=== PATIENT | male | born 1945 | race Caucasian/White ===

== ENCOUNTER 2024-09-16 12:39 | Outpatient (CLI) | payer MEDICARE, SELFPAY ==
--- OUTSIDE RECORDS SUMMARY | 2024-08-01 05:11 | XMS_ITS | Encounter Summary ---
Author Organization [facility] Address [address] [place] [address] Care Team Providers Care In Mold Coater Name Role Phone Bethany Underwood MD Primary Care Provider [phone] Reason for Visit * Reason Comments Chest Pain Encounter Details Date Type Department Care Team ([facility] st Contact Info) Description 08/01/2024 5:11 AM EDT - 08/01/2024 3:54 PM EDT Emergency [facility] Emergency Department [address] [place] [address] Asha Fleming MD [address] [place] [address] Juliette Dobson MD [address] [place] [address] John Sancehz MD [address] [place] [address] Acute chest pain (Primary Dx); Paroxysmal [...] drink first t liliam in the morning (EYE-MECHANICAL TECHNICIAN) to steady your nerves or to get [...] atrial fibrillation who initially presented to the [facility] today with chief complaint of [...] y.o. male who initially presented to the [facility] today with chief complaint of chest pain. 1) Chest pain 2) Paroxysmal AF Patient presenting with chest pain that may be due to AF due to temporal correlation, although, it is unusual for chest pain to be a symptom of AF. Also consider non cardiac chest pain as a cause of his symptoms. Discussed druze of sinus rhythm with cardioversion vs conservative management with patient. Given his reassuring workup, he preferred conservative management. Will continue on current dose of sotalol and Eliquis. Suspect he will convert back to sinus rhythm in the coming days-weeks. Will arrange for sooner follow up with EP. Please page the on-call hotel manager with any further questions. I spent 45 minutes performing the following components of the encounter (on the day of the encounter): reviewing History, examining the patient, reviewing imaging and/or labs, Independently interpreting echocardiogram, ECG and/or other imaging results, counseling the patient and family/caregiver, communicating with other health career resource specialist, and entering clinical information in the EHR. Greater than 50% of the time spent on the encounter was face to face providing direct patient care, counseling for the patient/caregiver, and care coordination. Ibis Riddle ([facility] Jonathan Order Analyst [1] Past Medical History: Diagnosis Date Personal history of other diseases of the digestive system History of gastroesophageal reflux (GERD) Personal history of other infectious and parasitic diseases History of chicken pox [2] Past Surgical History: Procedure Laterality Date APPENDECTOMY N/A appendectomy from [facility] BRAIN SURGERY N/A brain surgery from [facility] COLONOSCOPY N/A colonoscopy from [facility] COLONOSCOPY KNEE ARTHROSCOPY W/ MENISCAL REPAIR N/A meniscus repair from [facility] TONSILLECTOMY N/A tonsillectomy from [facility] Cosigned by Milan Bell MD at 08/02/2024 [...] meaningful gap in anticoagulation. Milan Bell MD Conservator Artifactspharmacy innovation assistant [facility] Division of Cardiovascular Medicine Email: [email or web address] * ED Provider Notes - Delia Cabrera [...] he did returned from a trip to [facility] on Monday. Denies any legswelling or tenderness. [...] abnormality, arrhythmia, ACS, PE . Records from [facility] were personally reviewed by me, significant for cardiology telephone encounter from [facility] [place], notable for call about patient's chest pain [...] FLEMING ED Course as of 08/01/24 0636 [facility] August 01, 2024 0519 On [...] Procedure Laterality Date APPENDECTOMY N/A appendectomy from [employer] BRAIN SURGERY N/A brain surgery from [facility] COLONOSCOPY N/A colonoscopy from [facility] COLONOSCOPY KNEE ARTHROSCOPY W/ MENISCAL REPAIR N/A meniscus repair from [facility] TONSILLECTOMY N/A tonsillectomy from [facility] [3] Tobacco Use Smoking status: Former Current [...] recommendations regarding cardioversion. Recommendations are pending [KP] [id number] Had interactive discussion with Cardiology Service, at [...] symptoms or other concerns. Disposition Discharge AVS (Latvian Snapshot) - Printed 08/01/2024 KRIS Fraser Cosigned [...] Description 12/23/2024 9:40 AM EDT Office Visit [facility] [address] [place] [address] Franchesca Hsieh MD [address] [place] [address] documented as of this encounter [...] 9 <19 ng/L 08/01/2024 8:48 AM EDT [facility] Blood Venous blood specimen / Unknown Venipuncture / Unknown 08/01/2024 8:15 AM EDT 08/01/2024 8:22 AM EDT us Asha Fleming MD LAB BLOOD ORDERABLES Final Resu lt [facility] [address] [place] [address] * CT Angio Pulmonary Embolism (08/01/2024 7:47 [...] 1/2 Differentiation (08/01/2024 5:32 AM EDT) Pathologist [facility] HIV 1 & 2 Antibody/Antigen Screen Non Reactive Non Reactive 08/01/2024 6:25 AM EDT [facility] Comment:Screening for HIV 1 & 2 antibodies, and P24 antigen is NONREACTIVE. No confirmatory testing is required. Blood Venous blood specimen / Unknown Venipuncture / Unknown 08/01/2024 5:32 AM EDT 08/01/2024 5:45 AM EDT Result Keith Fleming MD LAB BLOOD ORDERABLES Final Resu lt Performing Organization Address [facility] Co de Phone Number [facility] [address] [place] [address] * Hepatitis C Antibody - ED (08/01/2024 5:32 AM EDT) Pathologist [facility] Hepatitis C Antibody Negative Negative 08/01/2024 6:24 AM EDT [facility] Blood Venous blood specimen / Unknown Venipuncture / Unknown 08/01/2024 5:32 AM EDT 08/01/2024 5:45 AM EDT Result Keith Fleming MD LAB BLOOD ORDERABLES Final Resu lt Performing Organization Address City/[facility]/ZIP Co de Phone Number [facility] [address] [place] [address] * Troponin now and 120 min (08/01/2024 5:32 AM EDT) Pathologist [facility] Troponin T, High Sensitivity, 0 Hour 12 <19 ng/L 08/01/2024 6:15 AM EDT [facility] Blood Venous blood specimen / Unknown Venipuncture / Unknown 08/01/2024 5:32 AM EDT 08/01/2024 5:45 AM EDT Result Keith Fleming MD LAB BLOOD ORDERABLES Final Resu lt [facility] [address] [place] [address] * (ABNORMAL) CMP (08/01/2024 5:32 AM EDT) Glucose, Plasma 107(H) 74 - 99 mg/dL 08/01/2024 6:15 AM EDT [facility] BUN, Plasma 15 8 - 23 mg/dL 08/01/2024 6:15 AM EDT [facility] Creatinine, Plasma 0.61(L) 0.70 - 1.20 mg/dL 08/01/2024 6:15 AM EDT [facility] BUN/Creatinine Ratio 25 08/01/2024 6:15 AM EDT [facility] Sodium, Plasma 140 136 - 145 mmol/L 08/01/2024 6:15 AM EDT [facility] Potassium, Plasma 4.4 3.6 - 4.9 mmol/L 08/01/2024 6:15 AM EDT [facility] Chloride, Plasma 106 97 - 107 mmol/L 08/01/2024 6:15 AM EDT [facility] CO2, Plasma 25 22 - 29 mmol/L 08/01/2024 6:15 AM EDT [facility] Anion Gap 9 6 - 16 mmol/L 08/01/2024 6:15 AM EDT [facility] Total Calcium, Plasma 9.1 8.9 - 10.2 mg/dL 08/01/2024 6:15 AM EDT [facility] Total Protein 6.5 6.3 - 7.9 g/dL 08/01/2024 6:15 AM EDT [facility] Albumin, Plasma 3.8 3.5 - 5.2 g/dL 08/01/2024 6:15 AM EDT [facility] AST, Plasma 26 10 - 50 U/L 08/01/2024 6:15 AM EDT [facility] Comment:Hemolyzed, result ma y be falsely increased. ALT, Plasma 26 10 - 50 U/L 08/01/2024 6:15 AM EDT [facility] Alkaline Phosphatase, Plasma 85 40 - 115 U/L 08/01/2024 6:15 AM EDT [facility] Total Bilirubin, Plasma 0.5 0.2 - 1.1 mg/dL 08/01/2024 6:15 AM EDT [facility] eGFRcr 97.1 mL/min/1.7 3m*2 08/01/2024 6:15 AM EDT [facility] Comment:Reported eGFRcr in m L/min/1.73m2 is based the CKD-EPI 2020 equation that does not use a race coefficient. Blood Venous blood specimen / Unknown Venipuncture / Unknown 08/01/2024 5:32 AM EDT 08/01/2024 5:45 AM EDT us Asha Fleming MD LAB BLOOD ORDERABLES Final Resu lt [facility] [address] [place] [address] * (ABNORMAL) CBC w/diff (08/01/2024 5:32 AM EDT) WBC Count 6.51 3.70 - 10.30 10*3/uL LAB HEMATOLOGY METHOD 08/01/2024 5:36 AM EDT [facility] RBC Count 4.95 4.60 - 6.10 10*6/uL LAB HEMATOLOGY METHOD 08/01/2024 5:36 AM EDT [facility] HGB 15.6 13.7 - 17.5 g/dL LAB HEMATOLOGY METHOD 08/01/2024 5:36 AM EDT [facility] HCT 46.4 40.0 - 51.0 % LAB HEMATOLOGY METHOD 08/01/2024 5:36 AM EDT [facility] Platelet Count 200 155 - 369 10*3/uL LAB HEMATOLOGY METHOD 08/01/2024 5:36 AM EDT [facility] MCV 94 79 - 98 fL LAB HEMATOLOGY METHOD 08/01/2024 5:36 AM EDT [facility] MCH 31.5 26.0 - 32.0 pg LAB HEMATOLOGY METHOD 08/01/2024 5:36 AM EDT [facility] MCHC 33.6 30.7 - 35.5 g/dL LAB HEMATOLOGY METHOD 08/01/2024 5:36 AM EDT [facility] RDW 14.3 11.5 - 14.5 % LAB HEMATOLOGY METHOD 08/01/2024 5:36 AM EDT [facility] MPV 11.1 8.8 - 12.5 fL LAB HEMATOLOGY METHOD 08/01/2024 5:36 AM EDT [facility] nRBC 0.0 <=0.0 per 100 WBCs LAB HEMATOLOGY METHOD 08/01/2024 5:36 AM EDT [facility] Differential Type Automated LAB HEMATOLOGY METHOD 08/01/2024 5:36 AM EDT [facility] Neutrophils % 71 % LAB HEMATOLOGY METHOD 08/01/2024 5:36 AM EDT [facility] Lymphocytes % 15 % LAB HEMATOLOGY METHOD 08/01/2024 5:36 AM EDT [facility] Monocytes % 11 % LAB HEMATOLOGY METHOD 08/01/2024 5:36 AM EDT [facility] Eosinophils % 2 % LAB HEMATOLOGY METHOD 08/01/2024 5:36 AM EDT [facility] Basophils % 1 % LAB HEMATOLOGY METHOD 08/01/2024 5:36 AM EDT [facility] Immature Granulocytes % 0 % LAB HEMATOLOGY METHOD 08/01/2024 5:36 AM EDT [facility] Neutrophils Absolute 4.68 1.60 - 6.10 10*3/uL LAB HEMATOLOGY METHOD 08/01/2024 5:36 AM EDT [facility] Lymphocytes Absolute 0.95(L) 1.20 - 3.90 10*3/uL LAB HEMATOLOGY METHOD 08/01/2024 5:36 AM EDT [facility] Monocytes Absolute 0.71 0.30 - 0.90 10*3/uL LAB HEMATOLOGY METHOD 08/01/2024 5:36 AM EDT [facility] Eosinophils Absolute 0.12 0.00 - 0.50 10*3/uL LAB HEMATOLOGY METHOD 08/01/2024 5:36 AM EDT [facility] Basophils Absolute 0.03 0.00 - 0.10 10*3/uL LAB HEMATOLOGY METHOD 08/01/2024 5:36 AM EDT [facility] Immature Granulocytes Absolute 0.02 0.00 - 0.06 10*3/uL LAB HEMATOLOGY METHOD 08/01/2024 5:36 AM EDT [facility] Blood Venous blood specimen / Unknown Venipuncture / Unknown 08/01/2024 5:32 AM EDT 08/01/2024 5:34 AM EDT Narrative [facility] - 08/01/2024 5:36 AM EDT Therapeutic decision making should be based on absolute values, rather than percentages. us Asha Fleming MD LAB BLOOD ORDERABLES Final Resu lt [facility] [address] [place] [address] * EKG now - STAT (adult) (08/01/2024 5:14 AM EDT) EKG DIAGNOSIS CLASS Abnormal MUSE ECG Ventricular Rate 82 BPM MUSE ECG QRSD Interval 134 ms MUSE ECG QT Interval 414 ms MUSE ECG QTC Interval 483 ms MUSE ECG R [place] 124 degrees MUSE ECG T Wave [place] 10 degrees MUSE ECG Diagnosis Atrial fibrillation MUSE ECG Diagnosis Right bundle branch block MUSE ECG Diagnosis Abnormal ECG MUSE ECG Diagnosis MUSE ECG Diagnosis Confirmed by Yves Carroll ([id number]) on 08/01/2024 11:11:34 AM MUSE ECG 08/01/2024 5:14 AM EDT 08/01/2024 11:11 AM EDT us Asha Fleming MD ECG ORDERABLES Final Result Performing Organization Address City/[facility] Co de Phone Number MUSE ECG documented [...] documented as of this encounter Care Teams In Mold Coater Relationship Specialty Start Date End Date Bethany Underwood MD [address] [place] [address] [address] [place] [address] PCP - General 08/07/20 documented as of this encounter
--- OUTSIDE RECORDS SUMMARY | 2024-08-08 13:06 | XMS_ITS | Encounter Summary ---
Author Organization [facility] Address [address] [place] [address] Care Team Providers Care Hcc Coders Name Role Phone Bethany Underwood MD Primary Care Provider [phone] Reason for Referral * Cardiac Stress Testing (Routine) - Closed Specialty Diagnoses / Procedures Referred By Contac t Referred To Contact Cardiology Diagnoses Atrial fibrillation, unspecified type (CMS/HCC) Chest pain, unspecified type Anginal equivalent (CMS/HCC) Procedures Adult Patch Monitor - 7 Day Adult Patch Monitor - 14 Day Glory Camarena PA [address] [place] [address] Phone: tel: fax: Referral ID Status Reason Start Date Expiration Date Visits Re quested Visits Authorized [id number] Closed 08/06/2024 02/05/2026 1 1 Reason for Visit * Cardiac Stress Testing (Routine) - Closed Specialty Diagnoses / Procedures Referred By Contac t Referred To Contact Cardiology Diagnoses Atrial fibrillation, unspecified type (CMS/HCC) Chest pain, unspecified type Anginal equivalent (CMS/HCC) Procedures Adult Patch Monitor - 7 Day Adult Patch Monitor - 14 Day Glory Camarena PA [address] [place] [address] Phone: tel: fax: Referral ID Status Reason Start Date Expiration Date Visits Re quested Visits Authorized [id number] Closed 08/06/2024 02/05/2026 1 1 Encounter Details Date Type Department Care Team (Latest Contact Info) Description 08/08/2024 1:06 PM EDT - 08/08/2024 11:59 PM EDT Hospital Encounter Cardiac Imaging [address] [place] [address] Atrial fibrillation, unspecified type (CMS/HCC); Chest pain, unspecified type; Anginal equivalent (CMS/HCC) Discharge Disposition: Home or Self Care [...] drink first t liliam in the morning (EYE-RETURNED GOODS INSPECTOR) to steady your nerves or to get rid of a hangover? 0 08/01/2024 CAGE Questionnaire Score 0 025 Sex and Gender Information Value Date Recorded Sex Assigned at Male 01/12/2021 7:32 AM EDT Legal Sex Male 6:42 PM EDT Gender Identity Male 01/12/2021 7:32 AM EDT Sexual Orientation Straight 06/29/2021 3: 20 PM EDT documented as of this encounter Medications at Time of Discharge [...] 12 (twelve) hours. 180 tablet 3 07/04/2024 documented as of this encounter Plan of Treatment Upcoming Encounters Date Type Department Care Team (Late st Contact Info) Description 12/23/2024 9:40 AM EDT Office Visit [facility] [place] [address] [facility] [place] [address] Franchesca Hsieh MD [address] [place] [address] documented as of this encounter Procedures Procedure Name Priority Date/Time Associated Diagnosis Comments ADULT PATCH MONITOR - 7 DAY Routine 08/08/2024 1:06 PM EDT Atrial fibrillation, unspecified type (CMS/HCC) Chest pain, unspecified type Anginal equivalent (CMS/HCC) documented in this encounter Results * Adult Patch Monitor - 7 Day (08/08/2024 1:06 PM EDT) Anatomical Region Laterality Modality Other Narrative 08/31/2024 9:55 AM EDT PRELIMINARY FINDINGS: Analysis date: 08/29/24 - by TRACEE REEDER Patient monitored for 9d 14h, analyzable time was 7d 5h starting on 08/15/2024 05:50 pm. Primary rhythm was Atrial Fibrillation / Flutter. Average heart rate was 75 bpm, Minimum heart rate was 44 bpm on Day :29:00 pm, Max heart rate was 140 bpm on Day :54:16 pm Atrial Fibrillation or Flutter: [place] was 63.25 %, longest event 4d 18h on Day :58:19 pm, fastest event 140 bpm on :58:19 pm SVE(s): [place] was 0.02 %, 133 total SVE(s) SV Arrhythmia(s): 11 event(s), longest event 8 beats on :15:05 am, fastest event 128 bpm on :05:49 am Pause: 10 event(s), longest pause 2214 ms on :00:56 am Patient recorded 6 event(s) during the monitoring period PHYSICIAN COMMENTS: Patient was in sinus rhythm and then went into atrial fibrillation (51-140bpm, avg 85bpm) in the afternoon of 08/20/2024 There were 6 triggered events. 1 during sinus rhythm, 3 had artifacts recorded, and 2 were during atrial fibrillation 10 pauses with the longest being 2214ms, all during atrial fibrillation Glory PONCE [facility] CARDIAC SERVICES PROCEDU RES Final Result documented in this encounter Visit Diagnoses Diagnosis Atrial fibrillation, unspecified type (CMS/HCC) Chest pain, unspecified type Anginal equivalent (CMS/HCC) documented in this encounter Additional Health Concerns Assessment Noted Time PHQ-9 Depression Total Score: 0 07/05/19 8:55 AM EDT A fall risk assessment has been complete d for the patient 07/04/2024 8:55 AM EDT A Body Mass Index follow-up plan has been documented for the patient 07/04/2024 9:47 AM EDT documented as of this encounter Care Teams Hcc Coders Relationship Specialty Start Date End Date Bethany Underwood MD [address] [place], [place] [id number] PCP - General 08/07/20 documented as of this encounter
--- OUTSIDE RECORDS SUMMARY | 2024-08-26 11:21 | XMS_ITS | Encounter Summary ---
Author Organization [facility] Address [address] [place] [address] Care Team Providers Care Accounts Adjustable Clerk Name Role Phone Bethany Underwood MD Primary Care Provider [phone] Reason for Referral * Imaging (Routine) - Closed Specialty Diagnoses / Procedures Referred By Carmen t Referred To Contact Cardiology Diagnoses Atrial fibrillation, unspecified type (CMS/HCC) Chest pain, unspecified type Anginal equivalent (CMS/HCC) Procedures Stress test with myocardial perfusion Glory Camarena PA [address] [place] [address] Phone: tel: fax: Referral ID Status Reason Start Date Expiration Date Visits Re quested Visits Authorized [id number] Closed 08/06/2024 02/05/2026 1 1 Reason for Visit * Imaging (Routine) - Closed Specialty Diagnoses / Procedures Referred By Contac t Referred To Contact Cardiology Diagnoses Atrial fibrillation, unspecified type (CMS/HCC) Chest pain, unspecified type Anginal equivalent (CMS/HCC) Procedures Stress test with myocardial perfusion Glory Camarena PA [address] [place] [address] Phone: tel: fax: Referral ID Status Reason Start Date Expiration Date Visits Re quested Visits Authorized [id number] Closed 08/06/2024 02/05/2026 1 1 Encounter Details Date Type Department Care Team (Latest Contact Info) Description 08/26/2024 11:21 AM EDT Hospital Encounter Cardiac Imaging [address] [place] [address] Atrial fibrillation, unspecified type (CMS/HCC); Chest pain, [...] drink first t liliam in the morning (EYE-SENIOR PRODUCT MANAGER) to steady your nerves or to get [...] Description 12/23/2024 9:40 AM EDT Office Visit [facility] [place] [address] [facility] [place] [address] Franchesca Hsieh MD [address] [place] [address] documented as of this encounter Procedures Procedure Name Priority Date/Time Associated Diagnosis Comments NM MYOCARDIAL SPECT EXERCISE STRESS (MULTI STUDY) Routine 08/26/2024 1:23 PM EDT Atrial fibrillation, unspecified type (CMS/HCC) Chest pain, unspecified type Anginal equivalent (CMS/HCC) documented in this encounter Results * NM MYOCARDIAL SPECT EXERCISE STRESS (MULTI STUDY) (08/26/2024 1:23 PM EDT) Target HR 119 bpm MUSE MPHR 140 bpm MUSE Exercise duration (min) 7 min MUSE % of Max Predicted HR 88 % MUSE Peak HR 123 bpm MUSE Exercise duration (sec) 29 sec MUSE Peak METS 7.0 METS MUSE Pressure Product 30,504.0 MUSE Resting HR 53 bpm MUSE Resting SPO2 98 MUSE Peak SPO2 92 MUSE Baseline Systolic BP 142 MUSE Baseline Diastolic BP 84 MUSE Peak BP Systolic 248 mmHg MUSE Peak BP Diastolic 90 mmHg MUSE Recovery One Min HR 88 bpm MUSE Anatomical Region Laterality Modality Nuclear Medicine Narrative 08/26/2024 2:35 PM EDT Combined ECG/SPECT: This is a normal nuclear stress test. There is no previous examination/report available for comparison or correlation. Stress ECG: ST segment changes occurred with stress that did not meet ischemic criteria. Perfusion: SPECT images demonstrate normal myocardial perfusion. Function: Normal left ventricular cavity size. Gated SPECT images demonstrate normal systolic function. Regional wall motion is normal. LV wall thickening appears concordantly normal. LVEF: >=70%. Technical Details A one-day protocol was followed. 5.8 mCi of Tc-99m sestamibi were injected intravenously at rest. After a waiting period of 40-60 minutes, SPECT imaging of the heart was performed in the sitting upright position with three-dimensional tomographic reconstructions. The patient performed treadmill exercise using a standard Dillan protocol and completed 7:29 minutes; exercise was encouraged to continue for 1-2 minutes after achieving age-predicted target heart rate. 17.6 mCi of Tc-99m sestamibi were injected intravenously at peak stress. After a waiting period of 10-20 minutes, post-stress SPECT imaging of the heart was performed in the sitting upright and supine positions with three-dimensional tomographic reconstructions. Gated SPECT data were obtained to calculate left ventricular volumes and ejection fraction post-stress. Motion correction was not applied to the rest and/or post-stress acquisitions. Stress Findings An exercise stress test was performed. The exercise stress test using a Dillan protocol was performed. The patient exercised for 7 min and 29 sec. Reached stage 2 of the protocol. Achieved a peak of 7.0 METS. The patient had a maximal heart rate of 123 bpm (88% of the MPHR: 140 bpm). The patient's baseline blood pressure was 142/84, and changed to 248/90 with peak exercise. The patient reached target heart rate. The heart rate recovery at 1 minute is normal (>12bpm). The patient had hypertensive BP response to exercise. Overall, the patient's functional capacity was normal for their age and gender.The patient experienced no chest pain, discomfort, or anginal equivalent. The test was stopped because the patient experienced fatigue. Stress ECG Baseline ECG: The baseline ECG shows sinus bradycardia, right bundle branch block, normal axis and secondary ST-T abnormality. Ectopy noted on baseline ECG was rare premature atrial contractions. Baseline ECG shows no ST segment deviation. Stress and Recovery ECG: ST segment changes occurred that did not meet ischemic criteria. An occasional premature ventricular contraction presented during stress. Arrhythmias during recovery were rare premature atrial contractions. ECG Conclusion: ST segment changes occurred with stress that did not meet ischemic criteria. The stress test was performed under direct supervision of the reading dealer relationship manager. Study Impression There is no significant patient motion noted. The SPECT images demonstrate a normal left ventricular cavity size (normal: <149 mL for males, < 102 mL for females, small: <45 mL). There is no stress-induced transient ischemic dilation (TID) of the left ventricular cavity. SPECT images demonstrate normal myocardial perfusion. There is a small, mild perfusion defect located in the mid- distal inferior myocardium. The perfusion defect is fixed. The perfusion finding is best explained by processing artifact related to extra-cardiac activity. There is regular cardiac rhythm with optimal gating. The gated SPECT images demonstrate normal systolic function. Regional wall motion is normal. LV wall thickening appears concordantly normal. The calculated post-stress LVEF is >=70%. Nuclear Conclusion Combined ECG/SPECT: This is a normal nuclear stress test. There is no previous examination/report available for comparison or correlation. Glory PONCE CV STRESS PROCEDURES Final Result documented in this encounter Visit Diagnoses Diagnosis Atrial fibrillation, unspecified type (CMS/HCC) Chest pain, unspecified type Anginal equivalent (CMS/HCC) documented in this encounter Administered Medications Inactive Administered Medications - up to 3 most recent administrations Medication Order MAR Action Action Date Dose Rate Site Technetium Tc 99m Sestamibi radio-isotope injection 5.8 millicurie 5.8 millicurie, Intravenous, Once, 1 dose, On Mon08/26/24 at 1230, Routine Given 08/26/2024 11:42 AM EDT 5.8 millicuries documented in this encounter Additional Health Concerns Assessment Noted Time PHQ-9 Depression Total Score: 0 07/05/19 8:55 AM EDT A fall risk assessment has been complete d for the patient 07/04/2024 8:55 AM EDT A Body Mass Index follow-up plan has been documented for the patient 07/04/2024 9:47 AM EDT documented as of this encounter Care Teams Accounts Adjustable Clerk Relationship Specialty Start Date End Date Bethany Underwood MD [address] [place] [address] [address] [place] [address] PCP - General 08/07/20 documented as of this encounter
--- OUTSIDE RECORDS SUMMARY | 2024-08-26 11:22 | XMS_ITS | Encounter Summary ---
Author Organization [facility] Address [address] [place] [address] Care Team Providers Care Director Of Veterans Affairs Name Role Phone Bethany Underwood MD Primary Care Provider [phone] Reason for Visit * Imaging (Routine) - Closed Specialty Diagnoses / Procedures Referred By Contac t Referred To Contact Cardiology Diagnoses Atrial fibrillation, unspecified type (CMS/HCC) Chest pain, unspecified type Anginal equivalent (CMS/HCC) Procedures Stress test with myocardial perfusion Glory Camarena PA [address] [place] [address] Phone: tel: fax: Referral ID Status Reason Start Date Expiration Date Visits Re quested Visits Authorized [id number] Closed 08/06/2024 02/05/2026 1 1 Encounter Details Date Type Department Care Team (Latest Contact Info) Description 08/26/2024 11:22 AM EDT - 08/26/2024 11:59 PM EDT Hospital Encounter Cardiac Imaging [address] [place] [address] Discharge Disposition: Home or Self Care Social [...] drink first t liliam in the morning (EYE-FUNDING COORDINATOR) to steady your nerves or to get [...] Description 12/23/2024 9:40 AM EDT Office Visit [facility] [place] [facility] [address] [facility] [place] [address] Franchesca Hsieh MD [address] [place] [address] documented as of this encounter Procedures Procedure [...] documented as of this encounter Care Teams Director Of Veterans Affairs Relationship Specialty Start Date End Date Bethany Underwood MD [address] [place] [address] [address] [place] [id number] PCP - General 08/07/20 documented as of this encounter
--- NOTE | 2024-09-16 12:47 | XR_ITS ---
FINAL REPORT CLINICAL HISTORY: CHEST PAIN, soa FINDINGS: 2 views of the chest were obtained . The heart is normal in size. The mediastinum is within normal limits. The lungs are clear. There is no pneumothorax. Osseous structures are unremarkable. IMPRESSION: No acute cardiopulmonary process. Reviewed, Interpreted and Dictated by Geoffrey Patel MD Transcribed by Sharonda Foreman Authenticated and [facility] [place] [place]
--- OUTSIDE RECORDS SUMMARY | 2024-09-16 12:48 | XMS_ITS | Encounter Summary ---
Author Organization [facility] Address [address] [place] [address] Care Team Providers Care Child Day Care Teacher Name Role Phone Bethany Underwood MD Primary Care Provider [phone] Reason for Visit * Reason Onset Date Comments HCN - Patient Message 09/02/2024 Encounter Details Date Type Department Care Team (Late st Contact Info) Description 09/02/2024 Telephone [facility] [place] [facility] [address] [facility] [place] [address] Franchesca Hsieh MD [address] [place] [address] HCN - Patient Message Social History Tobacco Use Types Packs/Day Years [...] drink first t liliam in the morning (EYE-CELL INSTALLER) to steady your nerves or to get rid of a hangover? 0 08/01/2024 CAGE Questionnaire Score 0 025 Sex and Gender Information Value Date Recorded Sex Assigned at Male 01/12/2021 7:32 AM EDT Legal Sex Male 6:42 PM EDT Gender Identity Male 01/12/2021 7:32 AM EDT Sexual Orientation Straight 06/29/2021 3: 20 PM EDT documented as of this encounter Miscellaneous Notes * Telephone Encounter - Bebe Funes - 09/02/2024 10:15 AM EDT Patient Phone Message Reason for Call: Pt is requesting a sooner appt.. Please call pt. *EP pt Best contact number and optimal time of day to reach caller: [phone] Note: Please do not reply to this message. Follow-up communication and further actions as a result of this message need to be communicated with the patient directly, if the patient is not active onMyChart. If the patient is active on MyChart, they will receive notification of the communication/outcome via [employer]Mat[employer]. documented in this encounter Plan of Treatment Upcoming Encounters Date Type Department Care Team (Late st Contact Info) Description 12/23/2024 9:40 AM EDT Office Visit [facility] [place] [facility] [address] [facility] [place] [address] Franchesca Hsieh MD [address] [place] [address] documented as of this encounter Visit Diagnoses Not on filedocumented in this encounter Additional Health Concerns Assessment Noted Time PHQ-9 Depression Total Score: 0 07/05/19 25 8:55 AM EDT A fall risk assessment has been complete d for the patient 07/04/2024 8:55 AM EDT A Body Mass Index follow-up plan has been documented for the patient 07/04/2024 9:47 AM EDT documented as of this encounter Care Teams Child Day Care Teacher Relationship Specialty Start Date End Date Bethany Underwood MD [address] [place] [address] [address] [place] [phone] PCP - General 08/07/20 documented as of this encounter
--- OUTSIDE RECORDS SUMMARY | 2024-09-16 12:48 | XMS_ITS | Encounter Summary ---
Author Organization [facility] Address [address] [place] [address] Care Team Providers Care Test Director Name Role Phone Bethany Underwood MD Primary Care Provider [phone] Encounter Details Date Type Department Care Team (Latest Contact Info) Description 08/08/2024 Travel Social History Tobacco Use Types Packs/Day Years [...] drink first t liliam in the morning (EYE-CRYPTOANALYSIS TEACHER) to steady your nerves or to get rid of a hangover? 0 08/01/2024 CAGE Questionnaire Score 0 025 Sex and Gender Information Value Date Recorded Sex Assigned at Male 01/12/2021 7:32 AM EDT Legal Sex Male 6:42 PM EDT Gender Identity Male 01/12/2021 7:32 AM EDT Sexual Orientation Straight 06/29/2021 3: 20 PM EDT documented as of this encounter Plan of Treatment Upcoming Encounters Date Type Department Care Team (Late st Contact Info) Description 12/23/2024 9:40 AM EDT Office Visit [facility] [place] [facility] [address] [place] [address] Franchesca Hsieh MD [address] [place] [address] documented as of this encounter Visit Diagnoses [...] documented as of this encounter Care Teams Test Director Relationship Specialty Start Date End Date Bethany Underwood MD [address] [place] [address] [address] [place] [address] PCP - General 08/07/20 documented as of this encounter
--- OUTSIDE RECORDS SUMMARY | 2024-09-16 12:48 | XMS_ITS | Encounter Summary ---
Author Organization [facility] Address [address] [place] [address] Care Team Providers Care Business Intelligence Analyst Name Role Phone Bethany Underwood MD Primary Care Provider [phone] Encounter Details Date Type Department Care Team (Latest Contact Info) Description 08/26/2024 Travel Social History Tobacco Use Types Packs/Day [...] drink first t liliam in the morning (EYE-DRILL RUNNER) to steady your nerves or to get [...] Description 12/23/2024 9:40 AM EDT Office Visit [facility] [place] [facility] [address] [place] [address] Franchesca Hsieh MD [address] [place] [address] documented as of this encounter Visit Diagnoses [...] documented as of this encounter Care Teams Business Intelligence Analyst Relationship Specialty Start Date End Date Bethany Underwood MD [address] [place] [address] [address] [place] [address] PCP - General 08/07/20 documented as of this encounter
--- OUTSIDE RECORDS SUMMARY | 2024-09-16 12:48 | XMS_ITS | Clinical Summary ---
Author Organization [facility] Address [address] [place] [address] Care Team Providers Care Certified Adaptive Physical Educator Name Role Phone Bethany Underwood MD Primary Care Provider [phone] Allergies Active Allergy Reactions Criticality Noted Date Comments Phenytoin Other - please docum ent in the comment field,Unknown - Patient states they do not know rxn details Low 04/30/2018 Phenytoin Sodium Extended Unknown - Sulma ent states they do not know rxn details Low 12/08/2015 Medications sildenafil (Viagra) 100 MG tablet sildenafil 100 mg tablet TAKE 1/2 -1 TABLET (100 MG) BY ORAL ROUTE ONCE DAILY NEEDED APPROXIMATELY 1 HOUR BEFORE SEXUAL ACTIVITY 9 Active pravastatin (Pravachol) 20 MG tablet Take 1 tablet (20 mg) by mouth 1 (one) time each day. 1 Active cholecalciferol (Vitamin D-3) 10 MCG (400 UNIT) tablet Take 1 tablet (400 Units) by mouth 1 (one) time each day. Active ascorbic acid (Vitamin C) 500 MG tablet Take 2 tablets (1,000 mg) by mouth 1 (one) time each day. Active acetaminophen (Tylenol) 500 MG tablet acetaminophen 500 mg daily and prn Active omeprazole (PriLOSEC) [address] capsule TAKE 1 CAPSULE BY MOUTH EVERY DAY NEEDED 3 Active Paxlovid Oral Therapy Pack Take 3 tablets by mouth 2 (two) times a day. 4 Active apixaban (Eliquis) 5 MG tabletIndicatio ns:Paroxysmal tachycardia Take 1 tablet by mouth in the morning and 1 tablet before bedtime. 180 tablet 3 5 026 Active sotalol (Betapace) 80 MG tabletIndicatio ns:Paroxysmal tachycardia,Atr ial fibrillation, unspecified type (CMS/HCC),Atria l tachycardia (CMS/HCC) Take 1 tablet by mouth every 12 (twelve) hours. 180 tablet 3 5 026 Active Active Problems Problem Noted Date Diagnosed Date BREANA (obstructive sleep apnea) 07/18/2022 Overview (06/25/2024): Last Assessment & Plan: Baseline AHI is 5. This is mild sleep apnea. AHI increased to 22 and REM sleep. This was more moderate sleep apnea. He is on CPAP therapy. Download shows excellent control and excellent compliance. He is benefiting from PAP therapy. We plan to continue PAP therapy. Prescription to DME of patient's choice for CPAP supplies. Plan follow-up in 1 year or sooner for any BREANA or PAP concerns. Tachycardia 01/11/2022 High risk medication use 01/11/2022 Chronic anticoagulation 01/11/2022 Atrial fibrillation 07/06/2021 Thumb pain 03/10/2021 Erectile dysfunction 01/12/2021 Chest wall pain 01/12/2021 Encounter for loop recorder check 04/28/2020 Paroxysmal tachycardia 11/05/2019 Abnormal results of cardiovascular function stud ies 04/30/2018 Atrial tachycardia 04/30/2018 Overview (01/12/2021): 1. Atrial tachycardia: a. Patient reports episode of SVT in the setting of caffeine and alcohol intake in 1988. b. A 24-hour Holter monitor, 06/24/2015, minimum heart rate 50 beats per minute, maximum 136 beats per minutes, average 66 beats per minute, 88 PVCs, 351 PACs, brief episodes of atrial tachycardia noted. 1. Patient has had a brief episode of atrial tachycardia documented on a recent Holter monitor. He is minimally symptomatic. Dr. Bonilla had a long discussion with him regarding treatment options, and at this time he is going to make some lifestyle modifications including minimizing caffeine intake. We will continue to follow him. In the interim, we will perform a 2-D echocardiogram to assess his heart structure and function. 08/06/15 EKG shows sinus bradycardia at 52bpm 08/06/15- 1. Atrial tachycardia: a. Patient reports episode of SVT in the setting of caffeine and alcohol intake in 1988. b. A 24-hour Holter monitor, 06/24/2015, minimum heart rate 50 beats per minute, maximum 136 beats per minutes, average 66 beats per minute, 88 PVCs, 351 PACs, brief episodes of atrial tachycardia noted. 1. Patient has had a brief episode of atrial tachycardia documented on a recent Holter monitor. He is minimally symptomatic. Dr. Bonilla had a long discussion with him regarding treatment options, and at this time he is going to make some lifestyle modifications including minimizing caffeine intake. We will continue to follow him. In the interim, we will perform a 2-D echocardiogram to assess his heart structure and function. 08/06/15 EKG shows sinus bradycardia at 52bpm 08/06/15- Bronchitis 04/30/2018 GERD (gastroesophageal reflux disease) 9 Headache 04/30/2018 Hypertension 04/30/2018 Overview (01/12/2021): borderline borderline Palpitations 04/30/2018 Encounters Date Type Department Care Team Description 09/02/2024 Telephone [facility] [address] [place] [address] Franchesca Hsieh MD HCN - Patient Message 08/26/2024 11:22 AM EDT - 08/26/2024 11:59 PM EDT Hospital Encounter Cardiac Imaging [address] [place] [address] Discharge Disposition: Home or Self Care 08/26/2024 11:21 AM EDT Hospital Encounter Cardiac Imaging [address] [place] [address] Atrial fibrillation, unspecified type (CMS/HCC); Chest pain, unspecified type; Anginal equivalent (CMS/HCC) Discharge Disposition: Home or Self Care 08/26/2024 Travel 08/19/2024 Travel 08/08/2024 1:06 PM EDT - 08/08/2024 11:59 PM EDT Hospital Encounter Cardiac Imaging [address] [place] [address] Atrial fibrillation, unspecified type (CMS/HCC); Chest pain, unspecified type; Anginal equivalent (CMS/HCC) Discharge Disposition: Home or Self Care 08/08/2024 Travel 08/05/2024 Telephone [facility] [address] [facility] [address] John Sanchez MD HCN - Patient Message 08/01/2024 5:11 AM EDT - 08/01/2024 3:54 PM EDT Emergency [facility] Emergency Department [address] [place] [address] Benjamin Givens MD Martin, Julia E, MD Bronner, Jonathan M, MD Acute chest pain (Primary Dx); Paroxysmal atrial fibrillation (CMS/HCC) Discharge Disposition: Home or Self Care 08/01/2024 Travel 07/04/2024 9:00 AM EDT Office Visit [facility] [address] [address] Franchesca Hsieh MD High risk medication use (Primary Dx); Paroxysmal tachycardia; Atrial fibrillation, unspecified type (CMS/HCC); Atrial tachycardia (CMS/HCC) 07/04/2024 Travel 06/27/2024 Travel from Last 3 Months Immunizations Immunization Administration Dates Next Due Influenza, High-dose, Split Virus, Trivalent, Injectable, preservative free 01/10/2019 Influenza, high-dose, quadrivalent 01/10,01/10/2019,12/29/2017,12/29,01/13/2017,01/13/2017,01/25/2016 ,01/02/2015 Moderna COVID-19 Vaccine (Re d Cap) 12+ years 05/19/2020,04/25/2020 Tapdaq COVID-19 Vac cine (Purple Cap) 12+ 05/19/2020 Pneumococcal Conjugate PCV 13 02/23/2015 Pneumococcal Polysaccharide PPV23 03/22/2016 Tdap 11/25/2016 Family History Medical History Relation Name Comments Esophageal cancer Father Conversions - Other Mother Old age Esophageal cancer Mother Esophageal cancer Other Relation Name Status Comments Father Mother Other Social History Tobacco Use Types Packs/Day Years Used Date Smoking Tobacco: Former Cigarettes Q uit: 1968 Smokeless Tobacco: Never Tobacco Cessation:Counseling Given: Not Answered Alcohol Use Standard Drinks/Week Comments Yes 0 [...] drink first t liliam in the morning (EYE-YARD HAND) to steady your nerves or to get rid of a hangover? 0 08/01/2024 CAGE Questionnaire Score 0 025 Sex and Gender Information Value Date Recorded Sex Assigned at Male 01/12/2021 7:32 AM EDT Legal Sex Male 6:42 PM EDT Gender Identity Male 01/12/2021 7:32 AM EDT Sexual Orientation Straight 06/29/2021 3: 20 PM EDT Last Filed Vital Signs Vital Sign Reading Time Taken Comments Blood Pressure 156/87 08/26/2024 11:43 AM EDT Pulse 76 08/01/2024 3:00 PM EDT Temperature 36.9 C (98.4 F) 08/01/2024 2:14 PM EDT Respiratory Rate 14 08/01/2024 3:00 PM EDT Oxygen Saturation 92% 08/01/2024 3:00 PM EDT Inhaled Oxygen Concentration - - Weight 98 kg (216 lb) 08/26/2024 11:43 AM EDT Height 190.5 cm (6' 3 ) 08/26/2024 11:43 AM EDT Body Mass Index 27 08/26/2024 11:43 AM EDT Plan of Treatment Upcoming Encounters Date Type Department Care Team (Late st Contact Info) Description 12/23/2024 9:40 AM EDT Office Visit [facility] [place] [address] [place] [address] Franchesca Hsieh MD [address] [place] [address] Health Maintenance Due Date Last Done Comments [facility]-Medicare Annual Wellness (AWV) 1945 [facility]-Infant/Child/Adol SDOH Screenings 1945 [facility]- SDOH Screenings 12/20/1961 [facility]-Adult SDOH Screenings 12/20/1961 [id number] Vaccine ( season) 2023 02/15/2021, 05/19/2020, 05/19/2020, Additional history exists [facility]-Depression Screening 07/04/2025 07/04/2024, 06/25 [facility]-DTaP,Tdap,and Td Vaccines (3 - Td or Tdap) 03/02/2033 03/02/2023, 11/25/2016 [facility]-Zoster Vaccines Completed 03/19/2022, [facility]-RSV Vaccine: 60+ Years or Completed 01/26/2023 [facility]-Pneumococcal Vaccine: 50+ Years Completed 09/21/2023, 03/22/2016, 02/23/2015 [facility]-Influenza Vaccine Completed 12/12/2023 , 12/27/2022, 11/26/2021, Additional history exists [facility]-Obesity Intervention Completed 025, 12/25/2023, 12/20/2022, Additional history exists HPV Vaccines Aged Out No longer eligi ble based on patient's age to complete this topic [facility]-HIB Vaccines Aged Out No longer e ligible based on patient's age to complete this topic [facility]-Hepatitis A Vaccines Aged Out No longer eligible based on patient's age to complete this topic [facility]-IPV Vaccines Aged Out No longer e ligible based on patient's age to complete this topic [facility]-Rotavirus Vaccines Aged Out No lo nger eligible based on patient's age to complete this topic Medical Devices Implanted Type Area Director [place] Device Identifier Shelf Expiration Date Model / Serial / Lot Implant Implant N/A: Chest Description:Medtronic Linq Implant Implant N/A: Chest Medtronic Description:Medtronic Linq Implantable Loop Recorder Implantable Loop Recorder N/A: Chest Description:Medtronic Linq Procedures Procedure Name Priority Date/Time Associated Diagnosis Comments NM MYOCARDIAL SPECT EXERCISE STRESS (MULTI STUDY) Routine 08/26/2024 1:23 PM EDT Atrial fibrillation, unspecified type (CMS/HCC) Chest pain, unspecified type Anginal equivalent (CMS/HCC) ADULT PATCH MONITOR - 7 DAY Routine 08/08/2024 1:06 PM EDT Atrial fibrillation, unspecified type (CMS/HCC) Chest pain, unspecified type Anginal equivalent (CMS/HCC) TROPONIN T, HIGH SENSITIVITY, 2 HOUR, PLASMA Timed 08/01/2024 8:[address] ANGIO PULMONARY EMBOLISM STAT 08/01/2024 7:47 AM EDT XR CHEST 1 VIEW STAT 08/01/2024 5:39 AM EDT ED HIV 1/2 ANTIBODY/ANTIGEN SCREEN WITH REFLEX TO HIV I/II DIFFERENTIATION STAT 08/01/2024 5:32 AM EDT ED PROTOCOL HIV 1/2 ANTIBODY/ANTIGEN SCREEN W/REFLEX TO HIV 1/2 ANTIBODY DIFFERENTIATION STAT 08/01/2024 5:32 AM EDT HEPATITIS C ANTIBODY - ED W/REFLEX TO HCV QUANT PCR STAT 08/01/2024 5:32 AM EDT TROPONIN T, HIGH SENSITIVITY, 0 HOUR, PLASMA, REFLEX TO 2 HOUR STAT 08/01/2024 5:32 AM EDT COMPREHENSIVE METABOLIC PANEL, PLASMA STAT 08/01/2024 5:32 AM EDT CBC WITH AUTO DIFFERENTIAL STAT 08/01/2024 5:32 AM EDT ECG ADULT STAT 08/01/2024 5:14 AM EDT ECG ADULT Routine 07/04/2024 9:00 AM EDT High risk medication use from Last 3 Months Results * NM MYOCARDIAL SPECT EXERCISE STRESS [...] performed under direct supervision of the reading drop hammer set up operator. Study Impression There is no significant patient [...] Glory PONCE CV STRESS PROCEDURES Final Result * Adult Patch Monitor - 7 Day [...] Day :54:16 pm Atrial Fibrillation or Flutter: [place] was 63.25 %, longest event 4d 18h on Day :58:19 pm, fastest event 140 bpm on Day :58:19 pm SVE(s): [place] was 0.02 %, 133 total SVE(s) SV [...] CV CARDIAC SERVICES PROCEDU RES Final Result * Troponin T, High Sensitivity, 2 Hour, Plasma (08/01/2024 8:15 AM EDT) Troponin T, High Sensitivity, 2 Hour 9 <19 ng/L 08/01/2024 8:48 AM EDT [facility] Blood Venous blood specimen / Unknown Venipuncture / Unknown 08/01/2024 8:15 AM EDT 08/01/2024 8:22 AM EDT us Benjamin Givens MD LAB BLOOD ORDERABLES Final Resu lt [facility] [address] [id number] * CT Angio Pulmonary Embolism (08/01/2024 7:47 [...] Damon MD on 08/01/2024 9:21 AM us Benjamin Givens MD IMG CT PROCEDURES Final Result * [...] Juliano Goldberg MD on 08/01/2024 6:22 AM us Benjamin Givens MD IMG XR PROCEDURES Final Result * ED HIV 1/2 Antibody/Antigen Screen w/Reflex to HIV 1/2 Differentiation (08/01/2024 5:32 AM EDT) Pathologist [facility] HIV 1 & 2 Antibody/Antigen Screen Non Reactive Non Reactive 08/01/2024 6:25 AM EDT [facility] Comment:Screening for HIV 1 & 2 antibodies, and P24 antigen is NONREACTIVE. No confirmatory testing is required. Blood Venous blood specimen / Unknown Venipuncture / Unknown 08/01/2024 5:32 AM EDT 08/01/2024 5:45 AM EDT us Benjamin Givens MD LAB BLOOD ORDERABLES Final Resu lt Performing Organization Address [facility]/ZIP Co de Phone Number [facility] [address] [place] [address] * Troponin now and 120 min (08/01/2024 5:32 AM EDT) [facility] Troponin T, High Sensitivity, 0 Hour 12 <19 ng/L 08/01/2024 6:15 AM EDT [facility] Blood Venous blood specimen / Unknown Venipuncture / Unknown 08/01/2024 5:32 AM EDT 08/01/2024 5:45 AM EDT us Benjamin Givens MD LAB BLOOD ORDERABLES Final Resu lt Performing Organization Address [facility]/ZIP Co de Phone Number [facility] [address] [place] [address] * Hepatitis C Antibody - ED (08/01/2024 5:32 AM EDT) Pathologist [facility] Hepatitis C Antibody Negative Negative 08/01/2024 6:24 AM EDT [facility] Blood Venous blood specimen / Unknown Venipuncture / Unknown 08/01/2024 5:32 AM EDT 08/01/2024 5:45 AM EDT us Benjamin Givens MD LAB BLOOD ORDERABLES Final Resu lt Performing Organization Address City/[facility]/ZIP Co de Phone Number [facility] [address] [place] [address] * (ABNORMAL) CBC w/diff (08/01/2024 5:32 AM EDT) WBC Count 6.51 3.70 - 10.30 10*3/uL LAB HEMATOLOGY METHOD 08/01/2024 5:36 AM EDT [facility] RBC Count 4.95 4.60 - 6.10 10*6/uL LAB HEMATOLOGY METHOD 08/01/2024 5:36 AM EDT [facility] HGB 15.6 13.7 - 17.5 g/dL LAB HEMATOLOGY METHOD 08/01/2024 5:36 AM EDT [facility] HCT 46.4 40.0 - 51.0 % LAB HEMATOLOGY METHOD 08/01/2024 5:36 AM EDT [facility] Platelet Count 200 155 - 369 10*3/uL LAB HEMATOLOGY METHOD 08/01/2024 5:36 AM EDT [facility] MCV 94 79 - 98 fL LAB HEMATOLOGY METHOD 08/01/2024 5:36 AM EDT [facility] MCH 31.5 26.0 - 32.0 pg LAB HEMATOLOGY METHOD 08/01/2024 5:36 AM EDT [facility] MCHC 33.6 30.7 - 35.5 g/dL LAB HEMATOLOGY METHOD 08/01/2024 5:36 AM EDT [facility] RDW 14.3 11.5 - 14.5 % LAB HEMATOLOGY METHOD 08/01/2024 5:36 AM EDT [facility] MPV 11.1 8.8 - 12.5 fL LAB HEMATOLOGY METHOD 08/01/2024 5:36 AM EDT [facility] nRBC 0.0 <=0.0 per 100 WBCs LAB HEMATOLOGY METHOD 08/01/2024 5:36 AM EDT [facility] Differential Type Automated LAB HEMATOLOGY METHOD 08/01/2024 5:36 AM EDT [facility] Neutrophils % 71 % LAB HEMATOLOGY METHOD 08/01/2024 5:36 AM EDT [facility] Lymphocytes % 15 % LAB HEMATOLOGY METHOD 08/01/2024 5:36 AM EDT [facility] Monocytes % 11 % LAB HEMATOLOGY METHOD 08/01/2024 5:36 AM EDT [facility] Eosinophils % 2 % LAB HEMATOLOGY METHOD 08/01/2024 5:36 AM EDT [facility] Basophils % 1 % LAB HEMATOLOGY METHOD 08/01/2024 5:36 AM EDT [facility] Immature Granulocytes % 0 % LAB HEMATOLOGY METHOD 08/01/2024 5:36 AM EDT [facility] Neutrophils Absolute 4.68 1.60 - 6.10 10*3/uL LAB HEMATOLOGY METHOD 08/01/2024 5:36 AM EDT [facility] Lymphocytes Absolute 0.95(L) 1.20 - 3.90 10*3/uL LAB HEMATOLOGY METHOD 08/01/2024 5:36 AM EDT [facility] Monocytes Absolute 0.71 0.30 - 0.90 10*3/uL LAB HEMATOLOGY METHOD 08/01/2024 5:36 AM EDT [facility] Eosinophils Absolute 0.12 0.00 - 0.50 10*3/uL LAB HEMATOLOGY METHOD 08/01/2024 5:36 AM EDT [facility] Basophils Absolute 0.03 0.00 - 0.10 10*3/uL LAB HEMATOLOGY METHOD 08/01/2024 5:36 AM EDT [facility] Immature Granulocytes Absolute 0.02 0.00 - 0.06 10*3/uL LAB HEMATOLOGY METHOD 08/01/2024 5:36 AM EDT [facility] Blood Venous blood specimen / Unknown Venipuncture / Unknown 08/01/2024 5:32 AM EDT 08/01/2024 5:34 AM EDT Narrative [facility] - 08/01/2024 5:36 AM EDT Therapeutic decision making should be based on absolute values, rather than percentages. us Benjamin Givens MD LAB BLOOD ORDERABLES Final Resu lt [facility] [address] [place] [address] * (ABNORMAL) CMP (08/01/2024 5:32 AM EDT) Glucose, Plasma 107(H) 74 - 99 mg/dL 08/01/2024 6:15 AM EDT [facility] BUN, Plasma 15 8 - 23 mg/dL 08/01/2024 6:15 AM EDT [facility] Creatinine, Plasma 0.61(L) 0.70 - 1.20 mg/dL 08/01/2024 6:15 AM EDT [facility] BUN/Creatinine Ratio 25 08/01/2024 6:15 AM EDT [facility] Sodium, Plasma 140 136 - 145 mmol/L 08/01/2024 6:15 AM EDT [facility] Potassium, Plasma 4.4 3.6 - 4.9 mmol/L 08/01/2024 6:15 AM EDT [facility] Chloride, Plasma 106 97 - 107 mmol/L 08/01/2024 6:15 AM EDT [facility] CO2, Plasma 25 22 - 29 mmol/L 08/01/2024 6:15 AM EDT [facility] Anion Gap 9 6 - 16 mmol/L 08/01/2024 6:15 AM EDT [facility] Total Calcium, Plasma 9.1 8.9 - 10.2 mg/dL 08/01/2024 6:15 AM EDT [facility] Total Protein 6.5 6.3 - 7.9 g/dL 08/01/2024 6:15 AM EDT [facility] Albumin, Plasma 3.8 3.5 - 5.2 g/dL 08/01/2024 6:15 AM EDT [facility] AST, Plasma 26 10 - 50 U/L 08/01/2024 6:15 AM EDT [facility] Comment:Hemolyzed, result ma y be falsely increased. ALT, Plasma 26 10 - 50 U/L 08/01/2024 6:15 AM EDT [facility] Alkaline Phosphatase, Plasma 85 40 - 115 U/L 08/01/2024 6:15 AM EDT [facility] Total Bilirubin, Plasma 0.5 0.2 - 1.1 mg/dL 08/01/2024 6:15 AM EDT [facility] eGFRcr 97.1 mL/min/1.7 3m*2 08/01/2024 6:15 AM EDT [facility] Comment:Reported eGFRcr in m L/min/1.73m2 is based the CKD-EPI 2020 equation that does not use a race coefficient. Blood Venous blood specimen / Unknown Venipuncture / Unknown 08/01/2024 5:32 AM EDT 08/01/2024 5:45 AM EDT us Benjamin Givens MD LAB BLOOD ORDERABLES Final Resu lt Performing Organization Address City/[facility] Co de Phone Number [facility] [address] [place] [address] * EKG now - STAT (adult) (08/01/2024 5:14 AM EDT) Only the most recent of2 resultswithin the time period is included. EKG DIAGNOSIS CLASS Abnormal MUSE ECG Ventricular Rate 82 BPM MUSE ECG QRSD Interval 134 ms MUSE ECG QT Interval 414 ms MUSE ECG QTC Interval 483 ms MUSE ECG R Liberal 124 degrees MUSE ECG T Wave Liberal 10 degrees MUSE ECG Diagnosis Atrial fibrillation MUSE ECG Diagnosis Right bundle branch block MUSE ECG Diagnosis Abnormal ECG MUSE ECG Diagnosis MUSE ECG Diagnosis Confirmed by Yves Carroll ([id number]) on 08/01/2024 11:11:34 AM MUSE ECG 08/01/2024 5:14 AM EDT 08/01/2024 11:11 AM EDT us Benjamin Givens MD ECG ORDERABLES Final Result Performing Organization Address City/[facility] Co de Phone Number MUSE ECG from Last 3 Months Insurance MEDICARE FORMERLY [facility] Care Teams Certified Adaptive Physical Educator Relationship Specialty Start Date End Date Bethany Underwood MD [address] [place] [address] [address] [place] [phone] PCP - General 08/07/20
--- OUTSIDE RECORDS SUMMARY | 2024-09-16 12:48 | XMS_ITS | Encounter Summary ---
Author Organization [facility] Address [address] [place] [address] Care Team Providers Care Supervisor Central Supply Name Role Phone Bethany Underwood MD Primary Care Provider [phone] Encounter Details Date Type Department Care Team (Latest Contact Info) Description 08/01/2024 Travel Social History Tobacco Use Types Packs/Day [...] drink first t liliam in the morning (EYE-SORTING GRAPPLE OPERATOR) to steady your nerves or to get rid of a hangover? 0 08/01/2024 CAGE Questionnaire Score 0 025 Sex and Gender Information Value Date Recorded Sex Assigned at Male 01/12/2021 7:32 AM EDT Legal Sex Male 6:42 PM EDT Gender Identity Male 01/12/2021 7:32 AM EDT Sexual Orientation Straight 06/29/2021 3: 20 PM EDT documented as of this encounter Functional Status * Calculated C-SSRS Risk Score (Lifetime/Recent) Answer Date of Assessment Author No Risk Indicated 08/01/2024 5:35 AM EDT Irma Brandt, RN * Question Answer Date of Assessment Author 1. Wish to be (Past 1 Month) No 025 5:35 AM EDT Irma Brandt, RN 2. Non-Specific Active Suici misty Thoughts (Past 1 Month) No 08/01/2024 5:35 AM EDT Irma Brandt, RN 6. Suicidal Behavior (Lifetime) No 5:35 AM EDT Irma Brandt, RN documented as of this encounter Plan of Treatment Upcoming Encounters Date Type Department Care Team (Late st Contact Info) Description 12/23/2024 9:40 AM EDT Office Visit [facility] [place] [address] [facility] [place] [address] Franchesca Hsieh MD [address] [place] [address] documented as of this encounter Visit Diagnoses [...] documented as of this encounter Care Teams Supervisor Central Supply Relationship Specialty Start Date End Date Bethany Underwood MD [address] [place] [address] [address] [place] [address] PCP - General 08/07/20 documented as of this encounter
--- OUTSIDE RECORDS SUMMARY | 2024-09-16 12:48 | XMS_ITS | Encounter Summary ---
Author Organization [facility] Address [address] [place] [address] Care Team Providers Care Weaving Inspector Name Role Phone Bethany Underwood MD Primary Care Provider [phone] Reason for Referral * Cardiac Stress Testing (Routine) - Closed Specialty Diagnoses / Procedures Referred By Contac t Referred To Contact Cardiology Diagnoses Atrial fibrillation, unspecified type (CMS/HCC) Chest pain, unspecified type Anginal equivalent (CMS/HCC) Procedures Adult Patch Monitor - 7 Day Adult Patch Monitor - 14 Day Glory Camarena PA [address] [place] [address] Phone: tel: fax: Referral ID Status Reason Start Date Expiration Date Visits Re quested Visits Authorized [id number] Closed 08/06/2024 02/05/2026 1 1 * Imaging (Routine) - Closed Specialty Diagnoses / Procedures Referred By Contac t Referred To Contact Cardiology Diagnoses Atrial fibrillation, unspecified type (CMS/HCC) Chest pain, unspecified type Anginal equivalent (CMS/HCC) Procedures Stress test with myocardial perfusion Glory Camarena PA [address] [place] [address] Phone: tel: fax: Referral ID Status Reason Start Date Expiration Date Visits Re quested Visits Authorized [id number] Closed 08/06/2024 02/05/2026 1 1 Reason for Visit * Reason Onset Date Comments HCN - Patient Message 08/05/2024 Encounter Details Date Type Department Care Team (Late st Contact Info) Description 08/05/2024 Telephone [facility] [place] [address] [place] [address] John Sanchez MD [address] [place] [address] HCN - Patient Message Social History Tobacco [...] drink first t liliam in the morning (EYE-COMMUNITY REPRESENTATIVE) to steady your nerves or to get [...] encounter Miscellaneous Notes * Telephone Encounter - Daya Turk RN - 08/06/2024 10:56 AM EDT Notified pt, he reports some exertional CP but feels he is still in afib, denies new/worsening SOB.He would like to wear 2 week Holter and have stress test. He endorsed previous allergic reaction topatch and had to wear different monitor. He put the last one on himself and would like this one mailed. Sent message to Holter dept to ask them to mail one out. Instructed pt if severe CP reoccurs to present to ER. Pt verbalized understanding and agreeable to plan. * Telephone Encounter - Daya Turk RN - 08/05/2024 3:56 PM EDT SW pt he's been in afib ever since he left the ER . He reports chest pain that brought him into the ER went away over the weekend, but returned today. He says it's sporadic , and was not currently having active chest pain while speaking on the phone. He records HR and has ranged 45-124 Been like that all weekend . He is compliant with sotalol 80 mg BID, and Eliquis 5 mg BID with no missed doses. Glory saw him on 07/04 and ordered 48-hour monitor to be completed in the summer for FAAclearance. Advised pt I will forward message to Glory for ongoing recommendations. Briefly mentioned having him come in for EKG tomorrow and have monitor placed same day if recommended. Instructedpt to proceed to the ER if chest pain returns and does not improve with rest. Pt verbalized understanding and agreeable to plan. * Telephone Encounter - Daya Turk RN - 08/05/2024 3:56 PM EDT ----- Message from Stephane Holly sent at 08/05/2024 12:09 PM EDT ----- Pt called and stated that he has recently had to visit the ER due to emergency situations, and had some question for medical staff * Telephone Encounter - Ronaldo Bearndy January - 08/05/2024 9:53 AM EDT Same Day Appt/Overbook Request Reason for Call: Patient was seen in ED 08/01 and was to have a follow up scheduled. States needs this week as he is still in A-Fib. Best contact number: [phone] (mobile) Optimal time of day to reach caller: ANYTIME Additional comments/information from caller: Note: Please do not reply to this message. Follow-up communication and further actions as a result of this message need to be communicated with the patient directly, if the patient is not active onMyChart. If the patient is active on MyChart, they will receive notification of the communication/outcome via [employer]. documented in this encounter Plan of Treatment Upcoming Encounters Date Type Department Care Team (Late st Contact Info) Description 12/23/2024 9:40 AM EDT Office Visit [facility] [place] [address] [place] [address] Franchesca sHieh MD [address] [place] [address] documented as of this encounter Results * NM MYOCARDIAL SPECT [...] performed under direct supervision of the reading spring coverer. Study Impression There is no significant patient [...] Day :54:16 pm Atrial Fibrillation or Flutter: Anton was 63.25 %, longest event 4d 18h on Day :58:19 pm, fastest event 140 bpm on Day :58:19 pm SVE(s): Anton was 0.02 %, 133 total SVE(s) SV Arrhythmia(s): 11 event(s), longest event 8 beats on Day :15:05 am, fastest event 128 bpm on Day :05:49 am Pause: 10 event(s), longest pause [...] Visit Diagnoses Diagnosis Atrial fibrillation, unspecified type (CMS/HCC)- Primary Chest pain, unspecified type Anginal equivalent (CMS/HCC) Atrial fibrillation, unspecified type (CMS/HCC) Chest pain, unspecified type Anginal equivalent (CMS/HCC) Atrial fibrillation, unspecified type (CMS/HCC) Chest pain, [...] documented as of this encounter Care Teams Weaving Inspector Relationship Specialty Start Date End Date Bethany Underwood MD [address] [place] [address] [address] [place] [address] PCP - General 08/07/20 documented as of this encounter
--- OUTSIDE RECORDS SUMMARY | 2024-09-16 12:48 | XMS_ITS | Encounter Summary ---
Author Organization [facility] Address [address] [place] [address] Care Team Providers Care Produce Associate Name Role Phone Bethany Underwood MD Primary Care Provider [phone] Reason for Visit * Reason Comments Med Refill Encounter Details Date Type Department Care Team (Late st Contact Info) Description 01/13/2022 Refill [facility] [place] [facility] [address] [facility]. [address] [place] [address] Jose Ryan MD [address] [place] [address] Paroxysmal tachycardia (CMS/HCC) Social History Tobacco Use Types Packs/Day Years Used Date Smoking Tobacco: Former Cigarettes Q uit: 1968 Smokeless Tobacco: Never Alcohol Use Standard Drinks/Week Comments Yes 0 (1 standard drink = 0.6 oz pure alcohol) Alcoholic Drinks/day: Social alcohol use Sex and Gender Information Value Date Recorded Sex Assigned at Male 01/12/2021 7:32 AM EDT Legal Sex Male 6:42 PM EDT Gender Identity Male 01/12/2021 7:32 AM EDT Sexual Orientation Straight 06/29/2021 3: 20 PM EDT COVID-19 Exposure Response Date Recorded In the last 10 days, have yo u been in contact with someone who was confirmed or suspected to have Coronavirus/COVID-19? No / Unsure 01/11/2022 8:49 AM EDT documented as of this encounter Plan of Treatment Upcoming Encounters Date Type Department Care Team (Late Contact Info) Description 12/23/2024 9:40 AM EDT Office Visit [facility] [place] [facility] [address] [place] [address] Franchesca Hsieh MD [address] [place] [address] documented as of this encounter Visit Diagnoses Diagnosis Paroxysmal tachycardia Unspecified paroxysmal tachycardia documented in this encounter Additional Health Concerns Assessment Noted Time A fall risk assessment has been complete d for the patient 07/06/2021 9:55 AM EDT documented as of this encounter Care Teams Produce Associate Relationship Specialty Start Date End Date Bethany Underwood MD [address] [place] [address] [address] [place] [address] PCP - General 08/07/20 documented as of this encounter
--- OUTSIDE RECORDS SUMMARY | 2024-09-16 12:48 | XMS_ITS | Encounter Summary ---
Author Organization [facility] Address [address] [place] [address] Care Team Providers Care Software Technical Lead Name Role Phone Bethany Underwood MD Primary Care Provider [phone] Encounter Details Date Type Department Care Team (Latest Contact Info) Description 08/19/2024 Travel Social History Tobacco Use Types Packs/Day [...] drink first t liliam in the morning (EYE-3RD MATE) to steady your nerves or to get [...] Description 12/23/2024 9:40 AM EDT Office Visit [facility] [place] [facility] [address] [place] [address] Franchesca Hsieh MD [address] [place] [address] documented as of this encounter Visit Diagnoses [...] documented as of this encounter Care Teams Software Technical Lead Relationship Specialty Start Date End Date Bethany Underwood MD [address] [place] [address] [address] [place] [address] PCP - General 08/07/20 documented as of this encounter
--- OUTSIDE RECORDS SUMMARY | 2024-09-16 12:49 | XMS_ITS | Encounter Summary ---
Author Organization [facility] Address [address] [place] [address] Care Team Providers Care Milk Powder Grinder Name Role Phone Bethany Underwood MD Primary Care Provider [phone] Reason for Visit * Reason Comments Med Refill Encounter Details Date Type Department Care Team (Late st Contact Info) Description 10/04/2023 Refill [facility] [place] [address] [place] [address] Jose Ryan MD [address] [place] [address] Paroxysmal tachycardia (CMS/HCC); Atrial fibrillation, unspecified type (CMS/HCC); Atrial tachycardia (CMS/HCC) Social History Tobacco Use Types [...] Description 12/23/2024 9:40 AM EDT Office Visit [facility] [place] [address] [facility]. [address] [place] [address] Franchesca Hsieh MD [address] [place] [address] documented as of this encounter Visit Diagnoses Diagnosis Paroxysmal tachycardia Unspecified paroxysmal tachycardia Atrial fibrillation, unspecified type (CMS/HCC) Atrial tachycardia (CMS/HCC) Other specified cardiac dysrhythmias documented in this encounter Additional Health Concerns Assessment Noted Time A fall risk assessment has been complete d for the patient 12/20/2022 1:39 PM EDT A Body Mass Index follow-up plan has been documented for the patient 12/20/2022 2:02 PM EDT documented as of this encounter Care Teams Milk Powder Grinder Relationship Specialty Start Date End Date Bethany Underwood MD [address] [place] [address] [address] [place] [address] PCP - General 08/07/20 documented as of this encounter
== END 2024-09-16 23:59 | disposition home or self-care (01) ==
LOC: RAD 12:43
PROVIDERS: PCP Family Medicine; Visit Provider Family Medicine
DX: R07.89 Other chest pain (principal); R06.02 Shortness of breath
CPT/HCPCS: 71046

== ENCOUNTER 2024-09-20 08:26 | Outpatient (CLI) | payer MEDICARE, SELFPAY ==
--- OUTSIDE RECORDS SUMMARY | 2024-08-01 05:11 | XMS_ITS | Encounter Summary ---
Author Organization [facility] Address [address] [place] [address] Care Team Providers Care Merchandiser Retail Representative Name Role Phone Bethany Underwood MD Primary Care Provider [phone] Reason for Visit * Reason Comments Chest Pain Encounter Details Date Type Department Care Team ([facility] st Contact Info) Description 08/01/2024 5:11 AM EDT - 08/01/2024 3:54 PM EDT Emergency [facility] Emergency Department [address] [place] [address] Asha Fleming MD [address] [place] [phone] Juliette Dobson MD [address] [place] [phone] John Sanchez MD [address] [place] [phone] Acute chest pain (Primary Dx); Paroxysmal atrial fibrillation (CMS/HCC) Discharge Disposition: Home or Self Care Social History Tobacco Use Types Packs/Day Years Used Date Smoking Tobacco: Former Cigarettes Q uit: 1968 Smokeless Tobacco: Never Alcohol Use Standard Drinks/Week Comments Yes 0 (1 standard drink = 0.6 oz pure alcohol) Alcoholic Drinks/day: Social alcohol use PHQ-2 Answer Date Recorded Patient Health Questionnaire-2 Score 0 07/04/2024 PHQ-9 Answer Date Recorded Patient Health Questionnaire-9 Score 0 07/04/2024 CAGE ASSESSMENT Answer Date Recorded Cage unable to access Not on file 08/01/2024 Maximum number of drinks you had on a given occasion in the last month? 2 drinks 08/01/2024 How many alcoholic Beverages do you typically drink in a week? 0 - 7 per week 08/01/2024 Have you ever felt you should CUT down on your d rinking? 0 08/01/2024 Have you been ANNOYED by peo ple criticizing your drinking? 0 08/01/2024 Have you felt GUILTY about your drinking? 0 08/01/2024 Have you had a drink first t liliam in the morning (EYE-UTILITY OPERATOR YARN) to steady your nerves or to get rid of a hangover? 0 08/01/2024 CAGE Questionnaire Score 0 025 Sex and Gender Information Value Date Recorded Sex Assigned at Male 01/12/2021 7:32 AM EDT Legal Sex Male 6:42 PM EDT Gender Identity Male 01/12/2021 7:32 AM EDT Sexual Orientation Straight 06/29/2021 3: 20 PM EDT documented as of this encounter Last Filed Vital Signs Vital Sign Reading Time Taken Comments Blood Pressure 155/87 08/01/2024 3:00 PM EDT Pulse 76 08/01/2024 3:00 PM EDT Temperature 36.9 C (98.4 F) 08/01/2024 2:14 PM EDT Respiratory Rate 14 08/01/2024 3:00 PM EDT Oxygen Saturation 92% 08/01/2024 3:00 PM EDT Inhaled Oxygen Concentration - - Weight 98 kg (216 lb) 08/01/2024 5:35 AM EDT Height - - Body Mass Index 27 07/04/2024 8:54 AM EDT documented in this encounter Functional Status * Calculated C-SSRS Risk Score (Lifetime/Recent) Answer Date of Assessment Author No Risk Indicated 08/01/2024 5:35 AM EDT Irma Brandt, JENNIFER * Question Answer Date of Assessment Author 1. Wish to be (Past 1 Month) No 025 5:35 AM EDT Irma Brandt, RN 2. Non-Specific Active Suici misty Thoughts (Past 1 Month) No 08/01/2024 5:35 AM EDT Irma Brandt, RN 6. Suicidal Behavior (Lifetime) No 5 5:35 AM EDT Irma Brandt RN documented as of this encounter Discharge Instructions * Discharge Instructions* Ricardo Dodson PA - 08/01/2024 3:06 PM EDT Workup was unremarkable at this time. Cardiology weighed in and cleared for discharge with outpatient follow up. Please follow-up with cardiology service, they will contact you to schedule follow up appointment. Please stay hydrated, use Tylenol 650 mg every 6 hours, warmth in cold compresses over the region. Please return for new/worsening symptoms or other concerns. documented in this encounter Medications at Time of Discharge acetaminophen (Tylenol) 500 MG tablet acetaminophen 500 mg daily and prn apixaban (Eliquis) 5 MG tabletIndication s:Paroxysmal tachycardia Take 1 tablet by mouth in the morning and 1 tablet before bedtime. 180 tablet 3 07/04/2024 ascorbic acid (Vitamin C) 500 MG tablet Take 2 tablets (1,000 mg) by mouth 1 (one) time each day. cholecalciferol (Vitamin D-3) 10 MCG (400 UNIT) tablet Take 1 tablet (400 Units) by mouth 1 (one) time each day. omeprazole (PriLOSEC) [address] capsule TAKE 1 CAPSULE BY MOUTH EVERY DAY NEEDED 11/18/2022 Paxlovid Oral Therapy Pack Take 3 tablets by mouth 2 (two) times a day. 12/19/2023 pravastatin (Pravachol) 20 MG tablet Take 1 tablet (20 mg) by mouth 1 (one) time each day. 09/26/2020 sildenafil (Viagra) 100 MG tablet sildenafil 100 mg tablet TAKE 1/2 -1 TABLET (100 MG) BY ORAL ROUTE ONCE DAILY NEEDED APPROXIMATELY 1 HOUR BEFORE SEXUAL ACTIVITY 04/30/2018 sotalol (Betapace) 80 MG tabletIndication s:Paroxysmal tachycardia,Atri al fibrillation, unspecified type (CMS/HCC),Atrial tachycardia (CMS/HCC) Take 1 tablet by mouth every 12 (twelve) hours. 180 tablet 3 07/04/2024 6 documented as of this encounter Miscellaneous Notes * Consults - Ibis Riddle MD - 08/01/2024 3:54 PM EDTAssociated Order(s): IP CONSULT TO CARDIOLOGY CARDIOLOGY NEW CONSULT NOTE Reason For Consult: chest pain, AF Requesting Service: Emergency Department Requested Date/Time: 08/01/24 1038 SUBJECTIVE History Of Present Illness Adrian Mei is a 78 y.o. male with a past medical history of atrial tachycardia dating back to 1988, syncopal episode which prompted LINQ implant, atrial fibrillation who initially [facility] with chief complaint of chest pain. He developed a sharp chest pain yesterday while gardening. He has never had a similar sensation. The pain persisted and has worsened since it first started. It changes with position and worsens with deep breathing. Not tender to palpation. No dyspnea, palpitations, syncope, presyncope, orthopnea, PND. When he first noticed the chest pain he checked his Apple watch which showed he was in atrial fibrillation. Normally he feels palpitations and dyspnea when he goes into AF. In the ED he is rate controlled in AF. Troponin neg x2. CTPE neg for PE or acute cardiopulmonary process. Review of Systems 14 point ROS reviewed and is otherwise negative except that which is mentioned in the HPI. Past Medical History Medical History[1] Surgical History Surgical History[2] Family History Reviewed and non-contributory. Social History Tobacco use: denies Alcohol use: Denies any significant recent usage. Other: Denies any recent illicit drug use. Allergies Phenytoin and Phenytoin sodium extended Home Medications Current Outpatient Medications Medication Instructions acetaminophen (Tylenol) 500 MG tablet acetaminophen 500 mg daily and prn apixaban (ELIQUIS) 5 mg, Oral, 2 times daily ascorbic acid (VITAMIN C) 1,000 mg, ZZ Daily RT cholecalciferol (VITAMIN D-3) 400 Units, ZZ Daily RT omeprazole (PriLOSEC) [address] capsule TAKE 1 CAPSULE BY MOUTH EVERY DAY NEEDED Paxlovid Oral Therapy Pack 3 tablets, 2 times daily pravastatin (PRAVACHOL) 20 mg, Daily sildenafil (Viagra) 100 MG tablet sildenafil 100 mg tablet TAKE 1/2 -1 TABLET (100 MG) BY ORAL ROUTE ONCE DAILY NEEDED APPROXIMATELY 1 HOUR BEFORE SEXUAL ACTIVITY sotalol (BETAPACE) 80 mg, Oral, Every 12 hours OBJECTIVE Physical Exam Blood pressure (!) 155/87, pulse 76, temperature 36.9 ??C (98.4 ??F), temperature source Oral, resp. rate 14, weight 98 kg (216 lb), SpO2 92%. GENERAL: Awake, alert, NAD HEENT: NCAT NECK: No appreciable JVD CARDIAC: Regular rate, irregularly irregular rhythm, normal S1/S2, no m/r/g, 2+ radial pulses bilaterally PULM: CTAB without increased work of breathing ABD: Soft, NT, ND EXT: Warm and well perfused, no LE edema SKIN: No rashes or lesions NEURO: A&Ox4, moving all extremities spontaneously Results / Imaging Results from last 7 days Lab Units 08/01/24 0532 SODIUM mmol/L 140 POTASSIUM mmol/L 4.4 CHLORIDE mmol/L 106 CO2 mmol/L 25 BUN mg/dL 15 CREATININE mg/dL 0.61* CALCIUM mg/dL 9.1 BILIRUBIN TOTAL mg/dL 0.5 ALKALINE PHOSPHATASE U/L 85 ALT U/L 26 AST U/L 26 GLUCOSE mg/dL 107* Results from last 7 days Lab Units 08/01/24 0532 WBC 10*3/uL 6.51 HEMOGLOBIN g/dL 15.6 HEMATOCRIT % 46.4 PLATELETS 10*3/uL 200 Most recent Echocardiogram (02/04/22): Left Ventricle: The left ventricle is normal size. There is normal left ventricular myocardial thickness and mass. The left ventricular systolic function is normal. The LVEF as measured by biplane volume is 62%. The left ventricular wall motion is normal. The diastolic function is indeterminate. No left ventricular mass or thrombus is seen. Right Ventricle: The right ventricle is moderately dilated. Compared to the most recently available prior study, and allowing for differences in image quality and technique, the RV size is larger. ASSESSMENT/PLAN Adrian Mei is a 78 y.o. male who initially presented to the [facility] today with chief complaint of chest pain. 1) Chest pain 2) Paroxysmal AF Patient presenting with chest pain that may be due to AF due to temporal correlation, although, it is unusual for chest pain to be a symptom of AF. Also consider non cardiac chest pain as a cause of his symptoms. Discussed anglican of sinus rhythm with cardioversion vs conservative management with patient. Given his reassuring workup, he preferred conservative management. Will continue on current dose of sotalol and Eliquis. Suspect he will convert back to sinus rhythm in the coming days-weeks. Will arrange for sooner follow up with EP. Please page the on-call drilling assistant with any further questions. I spent 45 minutes performing the following components of the encounter (on the day of the encounter): reviewing History, examining the patient, reviewing imaging and/or labs, Independently interpreting echocardiogram, ECG and/or other imaging results, counseling the patient and family/caregiver, communicating with other health point of care technician, and entering clinical information in the EHR. Greater than 50% of the time spent on the encounter was face to face providing direct patient care, counseling for the patient/caregiver, and care coordination. Ibis Riddle ([facility] HospitalMD Jonathan Rib Bender [1] Past Medical History: Diagnosis Date Personal history of other diseases of the digestive system History of gastroesophageal reflux (GERD) Personal history of other infectious and parasitic diseases History of chicken pox [2] Past Surgical History: Procedure Laterality Date APPENDECTOMY N/A appendectomy from [facility] BRAIN SURGERY N/A brain surgery from [facility] COLONOSCOPY N/A colonoscopy from [facility] COLONOSCOPY KNEE ARTHROSCOPY W/ MENISCAL REPAIR N/A meniscus repair from [facility] TONSILLECTOMY N/A tonsillectomy from [facility] Cosigned by Milan Bell MD at 08/02/2024 8:29 AM EDT Associated attestation - Milan Bell MD - 08/02/2024 8:29 AM EDT Images from the original note were not included. I saw and evaluated the patient with the resident. I agree with the findings and plan as documented. Unclear if his atypical chest pain is related to recent-onset episode of rate- controlled atrial fibrillation or coincidental, but workup is not suggestive of ischemia. Discussed options for management of atrial fibrillation with him including early cardioversion or expectant management and he preferred the latter. We told him that it was likely he would revert to normal sinus rhythm with time butto notify our clinic or return to the ED if symptoms worsen. No changes to home medications. Has not had a meaningful gap in anticoagulation. Milan Bell MD Community Product Specialisthumanities and languages professor [facility] Division of Cardiovascular Medicine Email: [email or web address] * ED Provider Notes - Delia Cabrera MD - 08/01/2024 5:06 AM EDT Chief Complaint: Chest Pain HPI: Adrian Mei is a 78 y.o. male with a past medical history of atrial fibrillation controlled on sotalol and anticoagulated with Eliquis who presents with chest pain. History is provided by patient. States that he began to have upper chest discomfort about 24 hours ago, worse with inspiration.States that his apple watch showed him at the time that he was in atrial fibrillation. States that he tried to take a 2nd dose of the sotalol yesterday to convert out however it did not work. Denies any shortness of breath. States that he did returned from a trip to [facility] on Monday. Denies any legswelling or tenderness. Denies fever or cough. Past Medical History: Past medical history was reviewed. Medical History[1] Surgical History: Surgical history was reviewed. Surgical History[2] Social History: Social History was reviewed. Social History[3] Family History: Family History was reviewed. Family History[4] Allergies: Allergies reviewed. Allergies[5] ED Triage Vitals: ED Triage Vitals [08/01/24 0509] Temp Heart Rate Resp BP 36.4 ??C (97.6 ??F) 81 18 122/82 SpO2 Temp Source Heart Rate Source Patient Position 95 % Oral -- Sitting BP Location FiO2 (%) Right arm -- Physical Exam: Physical Exam Vitals and nursing note reviewed. Constitutional: General: He is not in acute distress. Appearance: He is well-developed. He is not toxic-appearing. Eyes: Extraocular Movements: Extraocular movements intact. Conjunctiva/sclera: Conjunctivae normal. Pupils: Pupils are equal, round, and reactive to light. Cardiovascular: Rate and Rhythm: Normal rate. Rhythm irregular. Pulses: Normal pulses. Heart sounds: No murmur heard. No friction rub. No gallop. Pulmonary: Effort: Pulmonary effort is normal. No respiratory distress. Breath sounds: Normal breath sounds. Abdominal: General: There is no distension. Palpations: Abdomen is soft. Tenderness: There is no abdominal tenderness. There is no guarding or rebound. Skin: Capillary Refill: Capillary refill takes less than 2 seconds. Neurological: General: No focal deficit present. Mental Status: He is alert and oriented to person, place, and time. Mental status is at baseline. MDM: Patient is a 78 y.o. male presenting with chest pain and concern for atrial fibrillation. Based on history, exam and review of available medical records: It should be noted that chronic conditions includes atrial fibrillation controlled on sotalol and anticoagulated with Eliquis, which currently isnot at goal therapy. This complicates his clinical picture because it Comorbidities: may be exacerbating symptoms and increases the risk for morbidity Differential diagnosis includes but is not limited to electrolyte abnormality, arrhythmia, ACS, PE . [facility] from [facility] were personally reviewed by me, significant for cardiology telephone encounter from [facility], notable for call about patient's chest pain that woke him up in sleep.. All Other Orders Ordered Status Ordering Provider 08/01/24 0615 Troponin T, High Sensitivity, 2 Hour, Plasma PROCEDURE ONCE Ordered DELIA CABRERA 08/01/24 0526 CBC w/diff STAT Final result DELIA CABRERA 08/01/24 0526 CMP STAT Final result DELIA CABRERA 08/01/24 0526 Troponin now and 120 min STAT Final result DELIA CABRERA 08/01/24 0526 XR Chest 1 View One time imaging Final result DELIA CABRERA 08/01/[address] Angio Pulmonary Embolism Once Acknowledged DELIA CABRERA 08/01/24 0526 Hepatitis C Antibody - ED Once Final result DELIA CABRERA 08/01/24 0526 ED Protocol - HIV 1/2 Antibody/Antigen Screen Once Final result DELIA CABRERA 08/01/24 0526 ED HIV 1/2 Antibody/Antigen Screen w/Reflex to HIV 1/2 Differentiation PROCEDURE ONCE Final result DELIA CABRERA 08/01/24 0508 EKG now - STAT (adult) Once Preliminary result ASHA FLEMING ED Course as of 08/01/24 0636 [facility] August 01, 2024 0519 On arrival, patient normotensive, non tachycardic, afebrile [AC] 0519 EKG now - STAT (adult) Independently interpreted by me, revealing of atrial fibrillation at a rate of 82, QTC 483, right bundle-branch block, no STEMI [AC] 0542 XR Chest 1 View Independently interpreted by me, revealing no acute cardiopulmonary pathology [AC] 0542 CBC w/diff(!) Unremarkable [AC] 0617 Troponin T, High Sensitivity, 0 Hour: 12 Wnl, delta pending [AC] 0617 CMP(!) Unremarkable [AC] 0630 MABLE: Paroxysmal A-fib sotalol, Eliquis, 24 since apple watch showed a-fib, told cardiology, presents. Recent [place] trip. Pleuritic CP. Call cards after. [] ED Course User Index [AC] Delia Cabrera MD [] Ricardo Dodson PA Clinical Impressions as of 08/01/24 0636 Acute chest pain Paroxysmal atrial fibrillation (CMS/HCC) Social Determinates of Health Risks (including Economic Stability, Education and level of understanding, Healthcare access and quality and concerning social factors): None identified on this visit At the time of shift change, imaging was/were pending. Patient care was handed off to the next resident on service. See MABLE note for ultimate impression and disposition. New Prescriptions No medications on file You have no referrals or appointment requests from this visit. Sign Off Checklist Clinical Impression: Complete ED Disposition: See Transfer of Care note for ED Disposition [1] Past Medical History: Diagnosis Date Personal history of other diseases of the digestive system History of gastroesophageal reflux (GERD) Personal history of other infectious and parasitic diseases History of chicken pox [2] Past Surgical History: Procedure Laterality Date APPENDECTOMY N/A appendectomy from [facility] BRAIN SURGERY N/A brain surgery from [facility] COLONOSCOPY N/A colonoscopy from [facility] COLONOSCOPY KNEE ARTHROSCOPY W/ MENISCAL REPAIR N/A meniscus repair from [facility] TONSILLECTOMY N/A tonsillectomy from [facility] [3] Tobacco Use Smoking status: Former Current packs/day: 0.00 Types: Cigarettes Quit date: 1967 Years since quittin.3 Smokeless tobacco: Never Vaping Use Vaping status: Never Used Substance Use Topics Alcohol use: Yes Comment: Alcoholic Drinks/day: Social alcohol use Drug use: Never [4] Family History Problem Relation Name Age of Onset Esophageal cancer Mother Esophageal cancer Father Esophageal cancer Other Conversions - Other Mother Old age [5] Allergies Allergen Reactions Phenytoin Other - please document in the comment field and Unknown - Patient states they do not know rxn details Phenytoin Sodium Extended Unknown - Patient states they do not know rxn details Delia Cabrera MD Resident 08/01/24635 Cosigned by Asha Fleming MD at 08/01/2024 11:27 PM EDT Associated attestation - Asha Fleming MD - 08/01/2024 11:27 PM EDT I saw and evaluated the patient with the resident/fellow. I discussed the case with the resident/fellow and agree with the findings and plan as documented. * ED Triage Notes - Deep Merrill RN - 08/01/2024 5:06 AM EDT Pt endorsing CP x1 day. Stating his apple watch is showing a fib. * Progress Notes - Ricardo Dodson PA - 08/01/2024 5:06 AM EDT Images from the original note were not included. ED TRANSFER OF CARE NOTE Transferring provider: MD Rick Transferring attending: MD Chon MABLE Time: 629 I received sign-out and accepted care of this patient from the previous ED providers caring for this patient. I reviewed the patient's history, exam, work- up, and treatment plan up to this point. Please see the primary ED Provider Note for complete elements of the history, physical exam, and ED course. PERTINENT HISTORY: In brief, Ricky Mei is a 78 y.o. male with relevant PMH atrial fibrillation anticoagulated on Eliquis, controlled on sotalol who presented to the ED for evaluation of chest pain. PENDING: I accepted care of this patient from the previous provider pending imaging results. Ultimately, imaging demonstrated the following findings: No pulmonary embolism with nonspecific ground-glass opacities in the right upper lobe. Patient not had any shortness of air or any infectious signs at this time. Given his history of atrial fibrillation, we did reach out to Cardiology for further recommendations who recommended continuing outpatient medications, follow up with the electrophysiology Clinic, return precautions. Patient was stable for discharge. ED Medication Administration from 08/01/2024 0506 to 08/01/2024 1609 Date/Time Order Dose Route Action 08/01/2024 0740 EDT iohexol (OMNIPaque) 350 MG/ML injection 100 mL 80 mL Intravenous Given ED COURSE: ED Course as of 08/01/24 1609 [place] August 01, 2024 0519 On arrival, patient normotensive, non tachycardic, afebrile [AC] 0519 EKG now - STAT (adult) Independently interpreted by me, revealing of atrial fibrillation at a rate of 82, QTC 483, right bundle-branch block, no STEMI [AC] 0542 XR Chest 1 View Independently interpreted by me, revealing no acute cardiopulmonary pathology [AC] 0542 CBC w/diff(!) Unremarkable [AC] 0617 Troponin T, High Sensitivity, 0 Hour: 12 Wnl, delta pending [AC] 0617 CMP(!) Unremarkable [AC] 0630 MABLE: Paroxysmal A-fib sotalol, Eliquis, 24 since apple watch showed a-fib, told cardiology, nooutpatient presents. Recent [place] trip. Pleuritic CP. Plan upon transfer of care is to call Cardiology after CT angio pulmonary embolism protocol was completed. [KP] 0850 Troponin T, High Sensitivity, 2 Hour: 9 Decreased from initial troponin, low likely ACS HEART score: 65+ (2)+Normal (0)+Moderately suspicious (1)+None (0)+1-3x normal (1)=4. [KP] 0952 Patient resting comfortably on reassessment. Discussed CT PE findings showing no PE. Final read showing nonspecific groundglass opacities within the right upper lobe. Likely minimal atelectasis. There is scarring versus platelike atelectasis in the right lung apex and in the posterior aspect of the superior portion of the left lower lobe. [KP] 1020 Cardiology was paged for further management recommendations regarding cardioversion. Recommendations are pending [KP] 1366 Had interactive discussion with Cardiology Service, at this point they recommended discharge, discussed with patient who was amenable to this plan, recommended multimodal pain management as needed, we will follow-up with EP clinic as an outpatient. Cardiology recommended continuing all home medications as prescribed. Discussed return precautions, patient stable for continued outpatient management. [] ED Course User Index [AC] Delia Cabrera MD [] Ricardo Dodson PA Clinical Impressions as of 08/01/24 1609 Acute chest pain Paroxysmal atrial fibrillation (CMS/HCC) Ultimately, this patient Was discharged Home (Discharge) The primary encounter diagnosis was Acute chest pain. A diagnosis of Paroxysmal atrial fibrillation (CMS/HCC) was also pertinent to this visit. . Patient was counseled on the diagnoses. Discharge medications if any are listed below. Listed medications are thought be either curative for listed diagnoses or will help control ongoing symptoms. Patient is requested to follow up with Cardiology in order to obtain routine follow-up and specialty care. Instructions on follow up as well as precautions to return to the ER provided verbally by the EM provider, as well as written in patientsdischarge education packet. ED Prescriptions None Discharge Instructions Workup was unremarkable at this time. Cardiology weighed in and cleared for discharge with outpatient follow up. Please follow-up with cardiology service, they will contact you to schedule follow up appointment. Please stay hydrated, use Tylenol 650 mg every 6 hours, warmth in cold compresses over the region. Please return for new/worsening symptoms or other concerns. Disposition Discharge AVS ([employer]) - Printed 08/01/2024 KRIS Fraser Cosigned by Juliette Dobson MD at 08/06/2024 7:55 AM EDT Associated attestation - Juliette Dobson MD - 08/06/2024 7:55 AM EDT I attest to being involved in providing substantive part of the medical decision making in patient care. documented in this encounter Plan of Treatment Upcoming Encounters Date Type Department Care Team (Late st Contact Info) Description 12/23/2024 9:40 AM EDT Office Visit [facility] [address] [place] [address] Franchesca Hsieh MD [address] [place] [address] documented as of this encounter Procedures Procedure Name Priority Date/Time Associated Diagnosis Comments TROPONIN T, HIGH SENSITIVITY, 2 HOUR, PLASMA Timed 08/01/2024 8:[address] ANGIO PULMONARY EMBOLISM STAT 08/01/2024 7:47 AM EDT XR CHEST 1 VIEW STAT 08/01/2024 5:39 AM EDT ED HIV 1/2 ANTIBODY/ANTIGEN SCREEN WITH REFLEX TO HIV I/II DIFFERENTIATION STAT 08/01/2024 5:32 AM EDT ED PROTOCOL HIV 1/2 ANTIBODY/ANTIGEN SCREEN W/REFLEX TO HIV 1/2 ANTIBODY DIFFERENTIATION STAT 08/01/2024 5:32 AM EDT TROPONIN T, HIGH SENSITIVITY, 0 HOUR, PLASMA, REFLEX TO 2 HOUR STAT 08/01/2024 5:32 AM EDT HEPATITIS C ANTIBODY - ED W/REFLEX TO HCV QUANT PCR STAT 08/01/2024 5:32 AM EDT CBC WITH AUTO DIFFERENTIAL STAT 08/01/2024 5:32 AM EDT COMPREHENSIVE METABOLIC PANEL, PLASMA STAT 08/01/2024 5:32 AM EDT ECG ADULT STAT 08/01/2024 5:14 AM EDT documented in this encounter Results * Troponin T, High Sensitivity, 2 Hour, Plasma (08/01/2024 8:15 AM EDT) Troponin T, High Sensitivity, 2 Hour 9 <19 ng/L 08/01/2024 8:48 AM EDT [facility] Blood Venous blood specimen / Unknown Venipuncture / Unknown 08/01/2024 8:15 AM EDT 08/01/2024 8:22 AM EDT us Asha Fleming MD LAB BLOOD ORDERABLES Final Resu lt [facility] [address] [place] [address] * CT Angio Pulmonary Embolism (08/01/2024 7:47 AM EDT) Anatomical Region Laterality Modality Chest Computed Tomogra phy Impressions 08/01/2024 9:21 AM EDT No pulmonary embolism. Nonspecific very small focal groundglass opacity within the right upper lobe. This is most likely minimal atelectasis. There is scarring versus platelike atelectasis in the right lung apex and in the posterior aspect of the superior portion of the left lower lobe. CRITICAL RESULT: No. COMMUNICATION: Per this written report. By electronically signing this report, I, the attending physician, attest that I have personally reviewed the images/data for the above examination(s) and agree with the final edited report. Drafted by Lynnette Gerber MD on 08/01/2024 8:21 AM Final report signed by Leatha Damon MD on 08/01/2024 9:21 AM Narrative 08/01/2024 9:21 AM EDT CLINICAL INDICATION: Pulmonary embolism (PE) suspected, high prob TECHNIQUE: Imaging of the chest was performed from thoracic inlet through upper abdomen, using spiral technique, with administration of IV contrast per the pulmonary angiogram protocol. 100 mL of Omnipaque-350 were administered intravenously. Coronal MIP images were reconstructed from this dataset. Total DLP (Dose-Length Product): 245.73 mGy.cm. Please note: The reported value represents the total of one or more individual components during the CT acquisition on this date and at this time, and as such, the same value may appear in more than one CT report depending on the interpreting/reporting physicians. COMPARISON: Chest radiograph, 08/01/2024. FINDINGS: Pulmonary Arteries/Vessels: No filling defect. Right Heart Strain: Absent. Mediastinum and Pleura: No mediastinal or hilar adenopathy. No pleural or pericardial effusion. Lungs: Focal groundglass opacity within the right upper lobe (series 5 image 36). Right basilar atelectasis. No consolidation. Upper Abdomen: No suspicious lesions in the partially visualized upper abdomen. Musculoskeletal: No suspicious lytic or sclerotic lesion. Procedure Note Leatha Damon MD - 08/01/2024 CLINICAL INDICATION: Pulmonary embolism (PE) suspected, high prob TECHNIQUE: Imaging of the chest was performed from thoracic inlet through upperabdomen, using spiral technique, with administration of IV contrast perthe pulmonary angiogram protocol. 100 mL of Omnipaque-350 wereadministered intravenously. Coronal MIP images were reconstructed fromthis dataset. Total DLP (Dose-Length Product): 245.73 mGy.cm. Please note: The reportedvalue represents the total of one or more individual components during theCT acquisition on this date and at this time, and as such, the same valuemay appear in more than one CT report depending on theinterpreting/reporting physicians. COMPARISON: Chest radiograph, 08/01/2024. FINDINGS: Pulmonary Arteries/Vessels: No filling defect. Right Heart Strain: Absent. Mediastinum and Pleura: No mediastinal or hilar adenopathy. No pleural orpericardial effusion. Lungs: Focal groundglass opacity within the right upper lobe (series 5image 36). Right basilar atelectasis. No consolidation. Upper Abdomen: No suspicious lesions in the partially visualized upperabdomen. Musculoskeletal: No suspicious lytic or sclerotic lesion. IMPRESSION: No pulmonary embolism. Nonspecific very small focal groundglass opacity within the right upperlobe. This is most likely minimal atelectasis. There is scarring versusplatelike atelectasis in the right lung apex and in the posterior aspectof the superior portion of the left lower lobe. CRITICAL RESULT: No. COMMUNICATION: Per this written report. By electronically signing this report, I, the attending physician, attjosethat I have personally reviewed the images/data for the aboveexamination(s) and agree with the final edited report. Drafted by Lynnette Gerber MD on 08/01/2024 8:21 AM Final report signed by Leatha Damon MD on 08/01/2024 9:21 AM us Asha Fleming MD IMG CT PROCEDURES Final Result * XR Chest 1 View (08/01/2024 5:39 AM EDT) Anatomical Region Laterality Modality Chest Digital Radiogra phy Impressions 08/01/2024 6:22 AM EDT No acute cardiopulmonary process. CRITICAL RESULT: No. COMMUNICATION: Per this written report. Preliminary report signed by Nikolas Price MD on 08/01/2024 5:44 AM By electronically signing this report, I, the attending physician, attest that I have personally reviewed the images/data for the above examination(s) and agree with the final edited report. Drafted by Nikolas Price MD on 08/01/2024 5:39 AM Final report signed by Juliano Goldberg MD on 08/01/2024 6:22 AM Narrative 08/01/2024 6:22 AM EDT CLINICAL INDICATION: Chest pain TECHNIQUE: XR CHEST 1 VIEW COMPARISON: Chest radiograph from 09/28/2019 FINDINGS: Loop recorder projects over the left chest wall. Mediastinal and cardiac contours are normal and stable. Aortic calcifications. No consolidation, significant pulmonary edema, pleural effusion or pneumothorax. No acute osseous abnormality. Procedure Note Juliano Goldberg MD - 08/01/2024 CLINICAL INDICATION: Chest pain TECHNIQUE: XR CHEST 1 VIEW COMPARISON: Chest radiograph from 09/28/2019 FINDINGS: Loop recorder projects over the left chest wall. Mediastinal and cardiaccontours are normal and stable. Aortic calcifications. No consolidation,significant pulmonary edema, pleural effusion or pneumothorax. No acuteosseous abnormality. IMPRESSION: No acute cardiopulmonary process. CRITICAL RESULT: No. COMMUNICATION: Per this written report. Preliminary report signed by Nikolas Price MD on 08/01/2024 5:44 AM By electronically signing this report, I, the attending physician, attestthat I have personally reviewed the images/data for the aboveexamination(s) and agree with the final edited report. Drafted by Nikolas Price MD on 08/01/2024 5:39 AM Final report signed by Juliano Goldberg MD on 08/01/2024 6:22 AM Result Keith Fleming MD IMG XR PROCEDURES Final Result * ED HIV 1/2 Antibody/Antigen Screen w/Reflex to HIV 1/2 Differentiation (08/01/2024 5:32 AM EDT) Pathologist [facility] HIV 1 & 2 Antibody/Antigen Screen Non Reactive Non Reactive 08/01/2024 6:25 AM EDT [facility] Comment:Screening for HIV 1 & 2 antibodies, and P24 antigen is NONREACTIVE. No confirmatory testing is required. Blood Venous blood specimen / Unknown Venipuncture / Unknown 08/01/2024 5:32 AM EDT 08/01/2024 5:45 AM EDT Result Keith Fleming MD LAB BLOOD ORDERABLES Final Resu lt Performing Organization Address [place]/[facility] Co de Phone Number [facility] [address] [place] [address] * Hepatitis C Antibody - ED (08/01/2024 5:32 AM EDT) Pathologist [facility] Hepatitis C Antibody Negative Negative 08/01/2024 6:24 AM EDT [facility] Blood Venous blood specimen / Unknown Venipuncture / Unknown 08/01/2024 5:32 AM EDT 08/01/2024 5:45 AM EDT Result Keith Fleming MD LAB BLOOD ORDERABLES Final Resu lt Performing Organization Address City/[facility]/ZIP Co de Phone Number [facility] [address] [place] [address] * Troponin now and 120 min (08/01/2024 5:32 AM EDT) Pathologist [facility] Troponin T, High Sensitivity, 0 Hour 12 <19 ng/L 08/01/2024 6:15 AM EDT [facility] Blood Venous blood specimen / Unknown Venipuncture / Unknown 08/01/2024 5:32 AM EDT 08/01/2024 5:45 AM EDT Result Keith Fleming MD LAB BLOOD ORDERABLES Final Resu lt [facility] [address] [place] [address] * (ABNORMAL) CMP (08/01/2024 5:32 AM EDT) Glucose, Plasma 107(H) 74 - 99 mg/dL 08/01/2024 6:15 AM EDT [facility] BUN, Plasma 15 8 - 23 mg/dL 08/01/2024 6:15 AM EDT [facility] Creatinine, Plasma 0.61(L) 0.70 - 1.20 mg/dL 08/01/2024 6:15 AM EDT [facility] BUN/Creatinine Ratio 25 08/01/2024 6:15 AM EDT [facility] Sodium, Plasma 140 136 - 145 mmol/L 08/01/2024 6:15 AM EDT [facility] Potassium, Plasma 4.4 3.6 - 4.9 mmol/L 08/01/2024 6:15 AM EDT [facility] Chloride, Plasma 106 97 - 107 mmol/L 08/01/2024 6:15 AM EDT [facility] CO2, Plasma 25 22 - 29 mmol/L 08/01/2024 6:15 AM EDT [facility] Anion Gap 9 6 - 16 mmol/L 08/01/2024 6:15 AM EDT [facility] Total Calcium, Plasma 9.1 8.9 - 10.2 mg/dL 08/01/2024 6:15 AM EDT [facility] Total Protein 6.5 6.3 - 7.9 g/dL 08/01/2024 6:15 AM EDT [facility] Albumin, Plasma 3.8 3.5 - 5.2 g/dL 08/01/2024 6:15 AM EDT [facility] AST, Plasma 26 10 - 50 U/L 08/01/2024 6:15 AM EDT [facility] Comment:Hemolyzed, result ma y be falsely increased. ALT, Plasma 26 10 - 50 U/L 08/01/2024 6:15 AM EDT [facility] Alkaline Phosphatase, Plasma 85 40 - 115 U/L 08/01/2024 6:15 AM EDT [facility] Total Bilirubin, Plasma 0.5 0.2 - 1.1 mg/dL 08/01/2024 6:15 AM EDT [facility] eGFRcr 97.1 mL/min/1.7 3m*2 08/01/2024 6:15 AM EDT [facility] Comment:Reported eGFRcr in m L/min/1.73m2 is based the CKD-EPI 2020 equation that does not use a race coefficient. Blood Venous blood specimen / Unknown Venipuncture / Unknown 08/01/2024 5:32 AM EDT 08/01/2024 5:45 AM EDT us Asha Fleming MD LAB BLOOD ORDERABLES Final Resu lt [facility] [address] [place] [address] * (ABNORMAL) CBC w/diff (08/01/2024 5:32 AM EDT) WBC Count 6.51 3.70 - 10.30 10*3/uL LAB HEMATOLOGY METHOD 08/01/2024 5:36 AM EDT [facility] RBC Count 4.95 4.60 - 6.10 10*6/uL LAB HEMATOLOGY METHOD 08/01/2024 5:36 AM EDT [facility] HGB 15.6 13.7 - 17.5 g/dL LAB HEMATOLOGY METHOD 08/01/2024 5:36 AM EDT [facility] HCT 46.4 40.0 - 51.0 % LAB HEMATOLOGY METHOD 08/01/2024 5:36 AM EDT [facility] Platelet Count 200 155 - 369 10*3/uL LAB HEMATOLOGY METHOD 08/01/2024 5:36 AM EDT [facility] MCV 94 79 - 98 fL LAB HEMATOLOGY METHOD 08/01/2024 5:36 AM EDT [facility] MCH 31.5 26.0 - 32.0 pg LAB HEMATOLOGY METHOD 08/01/2024 5:36 AM EDT [facility] MCHC 33.6 30.7 - 35.5 g/dL LAB HEMATOLOGY METHOD 08/01/2024 5:36 AM EDT [facility] RDW 14.3 11.5 - 14.5 % LAB HEMATOLOGY METHOD 08/01/2024 5:36 AM EDT [facility] MPV 11.1 8.8 - 12.5 fL LAB HEMATOLOGY METHOD 08/01/2024 5:36 AM EDT [facility] nRBC 0.0 <=0.0 per 100 WBCs LAB HEMATOLOGY METHOD 08/01/2024 5:36 AM EDT [facility] Differential Type Automated LAB HEMATOLOGY METHOD 08/01/2024 5:36 AM EDT [facility] Neutrophils % 71 % LAB HEMATOLOGY METHOD 08/01/2024 5:36 AM EDT [facility] Lymphocytes % 15 % LAB HEMATOLOGY METHOD 08/01/2024 5:36 AM EDT [facility] Monocytes % 11 % LAB HEMATOLOGY METHOD 08/01/2024 5:36 AM EDT [facility] Eosinophils % 2 % LAB HEMATOLOGY METHOD 08/01/2024 5:36 AM EDT [facility] Basophils % 1 % LAB HEMATOLOGY METHOD 08/01/2024 5:36 AM EDT [facility] Immature Granulocytes % 0 % LAB HEMATOLOGY METHOD 08/01/2024 5:36 AM EDT [facility] Neutrophils Absolute 4.68 1.60 - 6.10 10*3/uL LAB HEMATOLOGY METHOD 08/01/2024 5:36 AM EDT [facility] Lymphocytes Absolute 0.95(L) 1.20 - 3.90 10*3/uL LAB HEMATOLOGY METHOD 08/01/2024 5:36 AM EDT [facility] Monocytes Absolute 0.71 0.30 - 0.90 10*3/uL LAB HEMATOLOGY METHOD 08/01/2024 5:36 AM EDT [facility] Eosinophils Absolute 0.12 0.00 - 0.50 10*3/uL LAB HEMATOLOGY METHOD 08/01/2024 5:36 AM EDT [facility] Basophils Absolute 0.03 0.00 - 0.10 10*3/uL LAB HEMATOLOGY METHOD 08/01/2024 5:36 AM EDT [facility] Immature Granulocytes Absolute 0.02 0.00 - 0.06 10*3/uL LAB HEMATOLOGY METHOD 08/01/2024 5:36 AM EDT [facility] Blood Venous blood specimen / Unknown Venipuncture / Unknown 08/01/2024 5:32 AM EDT 08/01/2024 5:34 AM EDT Narrative [facility] - 08/01/2024 5:36 AM EDT Therapeutic decision making should be based on absolute values, rather than percentages. us Asha Fleming MD LAB BLOOD ORDERABLES Final Resu lt [facility] [address] [place] [address] * EKG now - STAT (adult) (08/01/2024 5:14 AM EDT) EKG DIAGNOSIS CLASS Abnormal MUSE ECG Ventricular Rate 82 BPM MUSE ECG QRSD Interval 134 ms MUSE ECG QT Interval 414 ms MUSE ECG QTC Interval 483 ms MUSE ECG R [place] 124 degrees MUSE ECG T Wave [place] 10 degrees MUSE ECG Diagnosis Atrial fibrillation MUSE ECG Diagnosis Right bundle branch block MUSE ECG Diagnosis Abnormal ECG MUSE ECG Diagnosis MUSE ECG Diagnosis Confirmed by Yves Carroll ([id number]) on 08/01/2024 11:11:34 AM MUSE ECG 08/01/2024 5:14 AM EDT 08/01/2024 11:11 AM EDT us Asha Fleming MD ECG ORDERABLES Final Result Performing Organization Address City/[facility] Co de Phone Number MUSE ECG documented in this encounter Visit Diagnoses Diagnosis Acute chest pain- Primary Unspecified chest pain Paroxysmal atrial fibrillation (CMS/HCC) Atrial fibrillation documented in this encounter Administered Medications Inactive Administered Medications - up to 3 most recent administrations Medication Order MAR Action Action Date Dose Rate Site iohexol (OMNIPaque) 350 MG/ML injection 100 mL 100 mL, Intravenous, Once in imaging, 1 dose, Starting on [place] 08/01/24 at 0726, Until [place] 08/01/24 at 0740, Routine, Imaging Protocol Orders Given 08/01/2024 7:40 AM EDT 80 mL documented in this encounter Active and Recently Administered Medications Times are shown in EDT. Scheduled Medication Order 07/30/2024 07/31/2024 08/01/2024 iohexol (OMNIPaque) 350 MG/ML injection 100 mL (COMPLETED) 100 mL, Intravenous, Once in imaging, 1 dose, Starting on [place] 08/01/24 at 0726, Until [place] 08/01/24 at 0740, Routine, Imaging Protocol Orders 0740 (Given - Provid er: Jessica Caraballo) documented in this encounter Additional Health Concerns Assessment Noted Time PHQ-9 Depression Total Score: 0 07/05/19 8:55 AM EDT A fall risk assessment has been complete d for the patient 07/04/2024 8:55 AM EDT A Body Mass Index follow-up plan has been documented for the patient 07/04/2024 9:47 AM EDT documented as of this encounter Care Teams Merchandiser Retail Representative Relationship Specialty Start Date End Date Bethany Underwood MD [address] [place] [address] [address] [place] [address] PCP - General 08/07/20 documented as of this encounter
--- OUTSIDE RECORDS SUMMARY | 2024-08-08 13:06 | XMS_ITS | Encounter Summary ---
Author Organization [facility] Address [address] [place] [address] Care Team Providers Care Industrial Robotics Mechanic Name Role Phone Bethany Underwood MD Primary Care Provider [phone] Reason for Referral * Cardiac Stress Testing (Routine) - Closed Specialty Diagnoses / Procedures Referred By Contac t Referred To Contact Cardiology Diagnoses Atrial fibrillation, unspecified type (CMS/HCC) Chest pain, unspecified type Anginal equivalent (CMS/HCC) Procedures Adult Patch Monitor - 7 Day Adult Patch Monitor - 14 Day Glory Camarena PA [address] [place] [address] Phone: tel: fax: Referral ID Status Reason Start Date Expiration Date Visits Re quested Visits Authorized [id number] Closed 08/06/2024 02/05/2026 1 1 Reason for Visit * Cardiac Stress Testing (Routine) - Closed Specialty Diagnoses / Procedures Referred By Contac t Referred To Contact Cardiology Diagnoses Atrial fibrillation, unspecified type (CMS/HCC) Chest pain, unspecified type Anginal equivalent (CMS/HCC) Procedures Adult Patch Monitor - 7 Day Adult Patch Monitor - 14 Day Glory Camarena PA [address] [place] [address] Phone: tel: fax: Referral ID Status Reason Start Date Expiration Date Visits Re quested Visits Authorized [id number] Closed 08/06/2024 02/05/2026 1 1 Encounter Details Date Type Department Care Team (Latest Contact Info) Description 08/08/2024 1:06 PM EDT - 08/08/2024 11:59 PM EDT Hospital Encounter Cardiac Imaging [address] [place] [address] Atrial fibrillation, unspecified type (CMS/HCC); Chest pain, [...] drink first t liliam in the morning (EYE-VIBRATOR OPERATOR) to steady your nerves or to get [...] Description 12/23/2024 9:40 AM EDT Office Visit [facility] [place] [address] [facility] [place] [address] Franchesca Hsieh MD [address] [place] [address] documented as of this encounter Procedures Procedure [...] Day :54:16 pm Atrial Fibrillation or Flutter: [place] was 63.25 %, longest event 4d 18h on Day :58:19 pm, fastest event 140 bpm on :58:19 pm SVE(s): [place] was 0.02 %, 133 total SVE(s) SV [...] documented as of this encounter Care Teams Industrial Robotics Mechanic Relationship Specialty Start Date End Date Bethany Underwood MD [address] [place], [place] [id number] PCP - General 08/07/20 documented as of this encounter
--- OUTSIDE RECORDS SUMMARY | 2024-08-26 11:21 | XMS_ITS | Encounter Summary ---
Author Organization [facility] Address [address] [place] [address] Care Team Providers Care Conveyor Belt Operator Name Role Phone Bethany Underwood MD Primary Care Provider [phone] Reason for Referral * Imaging (Routine) - Closed Specialty Diagnoses / Procedures Referred By Carmen t Referred To Contact Cardiology Diagnoses Atrial fibrillation, unspecified type (CMS/HCC) Chest pain, unspecified type Anginal equivalent (CMS/HCC) Procedures Stress test with myocardial perfusion Glory Camarena PA [address] [place] [address] Phone: tel: fax: Referral ID Status Reason Start Date Expiration Date Visits Re quested Visits Authorized [id number] Closed 08/06/2024 02/05/2026 1 1 Reason for Visit * Imaging (Routine) - Closed Specialty Diagnoses / Procedures Referred By Contac t Referred To Contact Cardiology Diagnoses Atrial fibrillation, unspecified type (CMS/HCC) Chest pain, unspecified type Anginal equivalent (CMS/HCC) Procedures Stress test with myocardial perfusion Glory Camarena PA [address] [place] [address] Phone: tel: fax: Referral ID Status Reason Start Date Expiration Date Visits Re quested Visits Authorized [id number] Closed 08/06/2024 02/05/2026 1 1 Encounter Details Date Type Department Care Team (Latest Contact Info) Description 08/26/2024 11:21 AM EDT Hospital Encounter Cardiac Imaging [address] [place] [address] Atrial fibrillation, unspecified type (CMS/HCC); Chest pain, [...] first t liliam in the morning (EYE-SENIOR DATASTAGE DEVELOPER) to steady your nerves or to get [...] Description 12/23/2024 9:40 AM EDT Office Visit [facility] [place] [address] [facility] [place] [address] Franchesca Hsieh MD [address] [place] [address] documented as of this encounter Procedures Procedure [...] performed under direct supervision of the reading digital communications manager. Study Impression There is no significant [...] documented as of this encounter Care Teams Conveyor Belt Operator Relationship Specialty Start Date End Date Bethany Underwood MD [address] [place] [address] [address] [place] [address] PCP - General 08/07/20 documented as of this encounter
--- OUTSIDE RECORDS SUMMARY | 2024-08-26 11:22 | XMS_ITS | Encounter Summary ---
Author Organization [facility] Address [address] [place] [address] Care Team Providers Care Cfo Controller Name Role Phone Bethany Underwood MD Primary Care Provider [phone] Reason for Visit * Imaging (Routine) - Closed Specialty Diagnoses / Procedures Referred By Contac t Referred To Contact Cardiology Diagnoses Atrial fibrillation, unspecified type (CMS/HCC) Chest pain, unspecified type Anginal equivalent (CMS/HCC) Procedures Stress test with myocardial perfusion Glory Camarena PA [address] [place] [address] Phone: tel: fax: Referral ID Status Reason Start Date Expiration Date Visits Re quested Visits Authorized [id number] Closed 08/06/2024 02/05/2026 1 1 Encounter Details Date Type Department Care Team (Latest Contact Info) Description 08/26/2024 11:22 AM EDT - 08/26/2024 11:59 PM EDT Hospital Encounter Cardiac Imaging [address] [place] [address] Discharge Disposition: Home or Self Care Social [...] drink first t liliam in the morning (EYE-LOG HAULER) to steady your nerves or to get [...] Sign Reading Time Taken Comments Blood Pressure 156/87 08/26/2024 11:43 AM EDT Pulse - - Temperature - - Respiratory Rate - - Oxygen Saturation - - Inhaled Oxygen Concentration - - Weight 98 kg (216 lb) 08/26/2024 11:43 AM EDT Height 190.5 cm (6' 3 ) 08/26/2024 11:43 AM EDT Body Mass Index 27 08/26/2024 11:43 AM EDT documented in this encounter Medications at Time [...] Description 12/23/2024 9:40 AM EDT Office Visit [facility] [place] [address] [facility] [place] [address] Franchesca Hsieh MD [address] [place] [address] documented as of this encounter Procedures Procedure Name Priority Date/Time Associated Diagnosis Comments NM MYOCARDIAL SPECT EXERCISE STRESS (MULTI STUDY) Routine 08/26/2024 1:23 PM EDT Atrial fibrillation, unspecified type (CMS/HCC) Chest pain, unspecified type Anginal equivalent (CMS/HCC) documented in this encounter Visit Diagnoses Not on filedocumented in this encounter Administered Medications Inactive Administered Medications - up to 3 most recent administrations Medication Order MAR Action Action Date Dose Rate Site Technetium Tc 99m Sestamibi radio-isotope injection 17.6 millicurie 17.6 millicurie, Intravenous, Once, 1 dose, On Mon08/26/24 at 1330, Routine Given 08/26/2024 1:48 PM EDT 17.6 millicuries documented in this encounter Additional Health Concerns Assessment Noted Time PHQ-9 Depression Total Score: 0 07/05/19 8:55 AM EDT A fall risk assessment has been complete d for the patient 07/04/2024 8:55 AM EDT A Body Mass Index follow-up plan has been documented for the patient 07/04/2024 9:47 AM EDT documented as of this encounter Care Teams Cfo Controller Relationship Specialty Start Date End Date Bethany Underwood MD [address] [place] [address] [address] [place] [id number] PCP - General 08/07/20 documented as of this encounter
--- NOTE | 2024-09-20 08:28 | FL_ITS ---
FINAL REPORT CLINICAL HISTORY: OTHER DYSPHAGIA 1:10 FLUORO TIME 3292.89DAP FINDINGS: UPPER GI EXAM HISTORY: Abdominal pain, dysphagia. PROCEDURE: The patient ingested barium. Effervescent crystals were also administered. Spot and overhead films were obtained. FINDINGS: The esophagus is normal. There is a small sliding type hiatal hernia. There is moderately advanced gastroesophageal reflux to the level of the aortic arch. Peristalsis is normal. The rugal fold pattern of the stomach is normal. The duodenal bulb is normal. 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 Fluoroscopy time: 1 minute 10 seconds Fluoro dose: 3292.89 DAP in uGym2 IMPRESSION: 1. Small sliding type hiatal hernia. 2. Gastroesophageal reflux to the level of the aortic arch. 3. Duodenal diverticulum. Reviewed, Interpreted and Dictated by Geoffrey Patel MD Transcribed by KRIS Arndt Authenticated and [facility]
--- OUTSIDE RECORDS SUMMARY | 2024-09-20 08:28 | XMS_ITS | Continuity of Care Document ---
Author Organization [facility]. If a dditional information is needed, contact Health Information Management at [phone] Address [address] [place] [address] Phone Care Team Providers Care Moving Worker Name Role Phone Unavailable Unavailable Unavailable Allergies and Adverse Reactions No Known Allergies(Allergy) Onset: 25-Mar-2021
--- OUTSIDE RECORDS SUMMARY | 2024-09-20 08:31 | XMS_ITS | Encounter Summary ---
Author Organization [facility] Address [address] [place] [address] Care Team Providers Care Nut Chopper Name Role Phone Bethany Underwood MD Primary Care Provider [phone] Reason for Referral * Cardiac Stress Testing (Routine) - Closed Specialty Diagnoses / Procedures Referred By Contac t Referred To Contact Cardiology Diagnoses Atrial fibrillation, unspecified type (CMS/HCC) Chest pain, unspecified type Anginal equivalent (CMS/HCC) Procedures Adult Patch Monitor - 7 Day Adult Patch Monitor - 14 Day Glory Camarena PA [address] [place] [address] Phone: tel: fax: Referral ID Status Reason Start Date Expiration Date Visits Re quested Visits Authorized [id number] Closed 08/06/2024 02/05/2026 1 1 * Imaging (Routine) - Closed Specialty Diagnoses / Procedures Referred By Contac t Referred To Contact Cardiology Diagnoses Atrial fibrillation, unspecified type (CMS/HCC) Chest pain, unspecified type Anginal equivalent (CMS/HCC) Procedures Stress test with myocardial perfusion Glory Camarena PA [address] [place] [address] Phone: tel: fax: Referral ID Status Reason Start Date Expiration Date Visits Re quested Visits Authorized [id number] Closed 08/06/2024 02/05/2026 1 1 Reason for Visit * Reason Onset Date Comments HCN - Patient Message 08/05/2024 Encounter Details Date Type Department Care Team (Late st Contact Info) Description 08/05/2024 Telephone [facility] [place] [address] [place] [address] Jonh Sanchez MD [address] [place] [address] HCN - Patient Message Social [...] drink first t liliam in the morning (EYE-CEMENT OR CONCRETE FINISHING SUPERVISOR) to steady your nerves or to get [...] is still in A-Fib. Best contact number: [phone] (mobile) Optimal time of day to reach caller: ANYTIME Additional comments/information from caller: Note: Please do not reply to this message. Follow-up communication and further actions as a result of this message need to be communicated with the patient directly, if the patient is not active onMyChart. If the patient is active on MyChart, they will receive notification of the communication/outcome via [employer]. documented in this encounter Plan of Treatment Upcoming Encounters Date Type Department Care Team (Late st Contact Info) Description 12/23/2024 9:40 AM EDT Office Visit [facility] [place] [address] [place] [address] Franchesca Hsieh MD [address] [place] [address] documented as of this encounter Results * [...] performed under direct supervision of the reading real estate marketing coordinator. Study Impression There is no significant patient [...] Day :54:16 pm Atrial Fibrillation or Flutter: Sunflower was 63.25 %, longest event 4d 18h on Day :58:19 pm, fastest event 140 bpm on Day :58:19 pm SVE(s): Sunflower was 0.02 %, 133 total SVE(s) SV [...] documented as of this encounter Care Teams Nut Chopper Relationship Specialty Start Date End Date Bethany Underwood MD [address] [place] [address] [address] [place] [address] PCP - General 08/07/20 documented as of this encounter
--- OUTSIDE RECORDS SUMMARY | 2024-09-20 08:31 | XMS_ITS | Encounter Summary ---
Author Organization [facility] Address [address] [place] [address] Care Team Providers Care Gum Sprayer Name Role Phone Bethany Underwood MD Primary Care Provider [phone] Encounter Details Date Type Department Care Team [...] drink first t liliam in the morning (EYE-SCHOOL BOAT DRIVER) to steady your nerves or to get [...] Description 12/23/2024 9:40 AM EDT Office Visit [facility] [place] [address] [facility] [place] [address] Franchesca Hsieh MD [address] [place] [address] documented as of this encounter Visit Diagnoses [...] documented as of this encounter Care Teams Gum Sprayer Relationship Specialty Start Date End Date Bethany Underwood MD [address] [place] [address] [address] [place] [address] PCP - General 08/07/20 documented as of this encounter
--- OUTSIDE RECORDS SUMMARY | 2024-09-20 08:32 | XMS_ITS | Encounter Summary ---
Author Organization [facility] Address [address] [place] [address] Care Team Providers Care Paper Box Cutter Name Role Phone Bethany Underwood MD Primary Care Provider [phone] Encounter Details Date Type Department Care Team [...] drink first t liliam in the morning (EYE-FOOT CASTER) to steady your nerves or to get [...] Description 12/23/2024 9:40 AM EDT Office Visit [facility] [place] [facility] [address] [place] [address] Franchesca Hsieh MD [address] [place] [address] documented as of this encounter Visit Diagnoses [...] documented as of this encounter Care Teams Paper Box Cutter Relationship Specialty Start Date End Date Bethany Underwood MD [address] [place] [address] [address] [place] [address] PCP - General 08/07/20 documented as of this encounter
--- OUTSIDE RECORDS SUMMARY | 2024-09-20 08:32 | XMS_ITS | Encounter Summary ---
Author Organization [facility] Address [address] [place] [address] Care Team Providers Care Grinder Lap Name Role Phone Bethany Underwood MD Primary Care Provider [phone] Reason for Visit * Reason Comments Med Refill Encounter Details Date Type Department Care Team (Late st Contact Info) Description 01/13/2022 Refill [facility] [place] [facility] [address] [facility]. [address] [place] [address] Jose Ryan MD [address] [place] [address] Paroxysmal tachycardia (CMS/HCC) Social History Tobacco Use [...] Description 12/23/2024 9:40 AM EDT Office Visit [facility] [place] [facility] [address] [place] [address] Franchesca Hsieh MD [address] [place] [address] documented as of this encounter Visit Diagnoses Diagnosis Paroxysmal tachycardia Unspecified paroxysmal tachycardia documented in this encounter Additional Health Concerns Assessment Noted Time A fall risk assessment has been complete d for the patient 07/06/2021 9:55 AM EDT documented as of this encounter Care Teams Grinder Lap Relationship Specialty Start Date End Date Bethany Underwood MD [address] [place] [address] [address] [place] [address] PCP - General 08/07/20 documented as of this encounter
--- OUTSIDE RECORDS SUMMARY | 2024-09-20 08:32 | XMS_ITS | Encounter Summary ---
Author Organization [facility] Address [address] [place] [address] Care Team Providers Care Supervisor Composing Room Name Role Phone Bethany Underwood MD Primary Care Provider [phone] Reason for Visit * Reason Onset Date Comments HCN - Patient Message 09/02/2024 Encounter Details Date Type Department Care Team (Late st Contact Info) Description 09/02/2024 Telephone [facility] [place] [facility] [address] [facility]. [address] [place] [address] Franchesca Hsieh MD [address] [place] [address] HCN - Patient Message Social [...] drink first t liliam in the morning (EYE-EDITOR AT LARGE) to steady your nerves or to get [...] optimal time of day to reach caller: [phone] Note: Please do not reply to this message. Follow-up communication and further actions as a result of this message need to be communicated with the patient directly, if the patient is not active onMyChart. If the patient is active on MyChart, they will receive notification of the communication/outcome via [employer]. documented in this encounter Plan of Treatment Upcoming Encounters Date Type Department Care Team (Late st Contact Info) Description 12/23/2024 9:40 AM EDT Office Visit [facility] [place] [facility] [address] [facility] [place] [address] Franchesca Hsieh MD [address] [place] [address] documented as of this encounter Visit Diagnoses [...] as of this encounter Care Teams Supervisor Composing Room Relationship Specialty Start Date End Date Bethany Underwood MD [address] [place] [address] [address] [place] [id number] PCP - General 08/07/20 documented as of this encounter
--- OUTSIDE RECORDS SUMMARY | 2024-09-20 08:32 | XMS_ITS | Clinical Summary ---
Author Organization [facility] Address [address] [place] [address] Care Team Providers Care Chief Pharmacist Name Role Phone Bethany Underwood MD Primary Care Provider [phone] Allergies Active Allergy Reactions Criticality Noted Date [...] Type Department Care Team Description 09/02/2024 Telephone [facility] [place] [address] [place] [address] Franchesca Hsieh MD HCN - Patient Message 08/26/2024 11:22 AM EDT - 08/26/2024 11:59 PM EDT Hospital Encounter Cardiac Imaging [address] [place] [address] Discharge Disposition: Home or Self Care 08/26/2024 11:21 AM EDT Hospital Encounter Cardiac Imaging [address] [place] [address] Atrial fibrillation, unspecified type (CMS/HCC); Chest pain, unspecified type; Anginal equivalent (CMS/HCC) Discharge Disposition: Home or Self Care 08/26/2024 Travel 08/19/2024 Travel 08/08/2024 1:06 PM EDT - 08/08/2024 11:59 PM EDT Hospital Encounter Cardiac Imaging [address] [place] [address] Atrial fibrillation, unspecified type (CMS/HCC); Chest pain, unspecified type; Anginal equivalent (CMS/HCC) Discharge Disposition: Home or Self Care 08/08/2024 Travel 08/05/2024 Telephone [facility] [address] [facility] [address] John Sanchez MD HCN - Patient Message 08/01/2024 5:11 AM EDT - 08/01/2024 3:54 PM EDT Emergency [facility] Emergency Department [address] [place] [address] Benjamin Givens MD Martin, Julia E, MD Bronner, Jonathan M, MD Acute chest pain (Primary Dx); Paroxysmal atrial fibrillation (CMS/HCC) Discharge Disposition: Home or Self Care 08/01/2024 Travel 07/04/2024 9:00 AM EDT Office Visit [facility] [address] [facility]. [address] [address] Franchesca Hsieh MD High risk medication use (Primary Dx); Paroxysmal tachycardia; Atrial fibrillation, unspecified type (CMS/HCC); Atrial tachycardia (CMS/HCC) 07/04/2024 Travel 06/27/2024 Travel from Last 3 Months Immunizations Immunization Administration Dates Next Due Influenza, High-dose, Split Virus, Trivalent, Injectable, preservative free 01/10/2019 Influenza, high-dose, quadrivalent 01/10,01/10/2019,12/29/2017,12/29,01/13/2017,01/13/2017,01/25/2016 ,01/02/2015 Moderna COVID-19 Vaccine (Re d Cap) 12+ years 05/19/2020,04/25/2020 [employer] COVID-19 Vac cine (Purple Cap) 12+ 05/19/2020 [...] drink first t liliam in the morning (EYE-ABSORBER OPERATOR) to steady your nerves or to [...] Description 12/23/2024 9:40 AM EDT Office Visit [facility] [place] [address] [place] [address] Franchesca Hsieh MD [address] [place] [address] Health Maintenance Due Date Last Done Comments [facility]-Medicare Annual Wellness (AWV) 1945 [facility]-Infant/Child/Adol SDOH Screenings 1945 [facility]- SDOH Screenings 12/20/1961 [facility]-Adult SDOH Screenings 12/20/1961 [id number] Vaccine ( season) 2023 02/15/2021, 05/19/2020, 05/19/2020, [...] this topic Medical Devices Implanted Type Area Hazard Waste Handler Device Identifier Shelf Expiration Date Model / [...] performed under direct supervision of the reading account review specialist. Study Impression There is no significant patient [...] Day :54:16 pm Atrial Fibrillation or Flutter: [place] was 63.25 %, longest event 4d 18h on Day :58:19 pm, fastest event 140 bpm on Day :58:19 pm SVE(s): [place] was 0.02 %, 133 total SVE(s) SV [...] 9 <19 ng/L 08/01/2024 8:48 AM EDT [facility] Blood Venous blood specimen / Unknown Venipuncture / Unknown 08/01/2024 8:15 AM EDT 08/01/2024 8:22 AM EDT us Benjamin Givens MD LAB BLOOD ORDERABLES Final Resu lt [facility] [address] [id number] * CT Angio Pulmonary Embolism (08/01/2024 7:47 [...] Differentiation (08/01/2024 5:32 AM EDT) Pathologist [facility] HIV 1 & 2 Antibody/Antigen Screen Non Reactive Non Reactive 08/01/2024 6:25 AM EDT [facility] Comment:Screening for HIV 1 & 2 antibodies, and P24 antigen is NONREACTIVE. No confirmatory testing is required. Blood Venous blood specimen / Unknown Venipuncture / Unknown 08/01/2024 5:32 AM EDT 08/01/2024 5:45 AM EDT us Benjamin Givens MD LAB BLOOD ORDERABLES Final Resu lt Performing Organization Address [facility]/ZIP Co de Phone Number [facility] [address] [place] [address] * Troponin now and 120 min (08/01/2024 5:32 AM EDT) [facility] Troponin T, High Sensitivity, 0 Hour 12 <19 ng/L 08/01/2024 6:15 AM EDT [facility] Blood Venous blood specimen / Unknown Venipuncture / Unknown 08/01/2024 5:32 AM EDT 08/01/2024 5:45 AM EDT us Benjamin Givens MD LAB BLOOD ORDERABLES Final Resu lt Performing Organization Address [facility]/ZIP Co de Phone Number [facility] [address] [place] [address] * Hepatitis C Antibody - ED (08/01/2024 5:32 AM EDT) Pathologist [facility] Hepatitis C Antibody Negative Negative 08/01/2024 6:24 AM EDT [facility] Blood Venous blood specimen / Unknown Venipuncture / Unknown 08/01/2024 5:32 AM EDT 08/01/2024 5:45 AM EDT us Benjamin Givens MD LAB BLOOD ORDERABLES Final Resu lt Performing Organization Address City/[facility]/ZIP Co de Phone Number [facility] [address] [place] [address] * (ABNORMAL) CBC w/diff (08/01/2024 5:32 AM EDT) WBC Count 6.51 3.70 - 10.30 10*3/uL LAB HEMATOLOGY METHOD 08/01/2024 5:36 AM EDT [facility] RBC Count 4.95 4.60 - 6.10 10*6/uL LAB HEMATOLOGY METHOD 08/01/2024 5:36 AM EDT [facility] HGB 15.6 13.7 - 17.5 g/dL LAB HEMATOLOGY METHOD 08/01/2024 5:36 AM EDT [facility] HCT 46.4 40.0 - 51.0 % LAB HEMATOLOGY METHOD 08/01/2024 5:36 AM EDT [facility] Platelet Count 200 155 - 369 10*3/uL LAB HEMATOLOGY METHOD 08/01/2024 5:36 AM EDT [facility] MCV 94 79 - 98 fL LAB HEMATOLOGY METHOD 08/01/2024 5:36 AM EDT [facility] MCH 31.5 26.0 - 32.0 pg LAB HEMATOLOGY METHOD 08/01/2024 5:36 AM EDT [facility] MCHC 33.6 30.7 - 35.5 g/dL LAB HEMATOLOGY METHOD 08/01/2024 5:36 AM EDT [facility] RDW 14.3 11.5 - 14.5 % LAB HEMATOLOGY METHOD 08/01/2024 5:36 AM EDT [facility] MPV 11.1 8.8 - 12.5 fL LAB HEMATOLOGY METHOD 08/01/2024 5:36 AM EDT [facility] nRBC 0.0 <=0.0 per 100 WBCs LAB HEMATOLOGY METHOD 08/01/2024 5:36 AM EDT [facility] Differential Type Automated LAB HEMATOLOGY METHOD 08/01/2024 5:36 AM EDT [facility] Neutrophils % 71 % LAB HEMATOLOGY METHOD 08/01/2024 5:36 AM EDT [facility] Lymphocytes % 15 % LAB HEMATOLOGY METHOD 08/01/2024 5:36 AM EDT [facility] Monocytes % 11 % LAB HEMATOLOGY METHOD 08/01/2024 5:36 AM EDT [facility] Eosinophils % 2 % LAB HEMATOLOGY METHOD 08/01/2024 5:36 AM EDT [facility] Basophils % 1 % LAB HEMATOLOGY METHOD 08/01/2024 5:36 AM EDT [facility] Immature Granulocytes % 0 % LAB HEMATOLOGY METHOD 08/01/2024 5:36 AM EDT [facility] Neutrophils Absolute 4.68 1.60 - 6.10 10*3/uL LAB HEMATOLOGY METHOD 08/01/2024 5:36 AM EDT [facility] Lymphocytes Absolute 0.95(L) 1.20 - 3.90 10*3/uL LAB HEMATOLOGY METHOD 08/01/2024 5:36 AM EDT [facility] Monocytes Absolute 0.71 0.30 - 0.90 10*3/uL LAB HEMATOLOGY METHOD 08/01/2024 5:36 AM EDT [facility] Eosinophils Absolute 0.12 0.00 - 0.50 10*3/uL LAB HEMATOLOGY METHOD 08/01/2024 5:36 AM EDT [facility] Basophils Absolute 0.03 0.00 - 0.10 10*3/uL LAB HEMATOLOGY METHOD 08/01/2024 5:36 AM EDT [facility] Immature Granulocytes Absolute 0.02 0.00 - 0.06 10*3/uL LAB HEMATOLOGY METHOD 08/01/2024 5:36 AM EDT [facility] Blood Venous blood specimen / Unknown Venipuncture / Unknown 08/01/2024 5:32 AM EDT 08/01/2024 5:34 AM EDT Narrative [facility] - 08/01/2024 5:36 AM EDT Therapeutic decision making should be based on absolute values, rather than percentages. us Benjamin Givens MD LAB BLOOD ORDERABLES Final Resu lt [facility] [address] [place] [address] * (ABNORMAL) CMP (08/01/2024 5:32 AM EDT) Glucose, Plasma 107(H) 74 - 99 mg/dL 08/01/2024 6:15 AM EDT [facility] BUN, Plasma 15 8 - 23 mg/dL 08/01/2024 6:15 AM EDT [facility] Creatinine, Plasma 0.61(L) 0.70 - 1.20 mg/dL 08/01/2024 6:15 AM EDT [facility] BUN/Creatinine Ratio 25 08/01/2024 6:15 AM EDT [facility] Sodium, Plasma 140 136 - 145 mmol/L 08/01/2024 6:15 AM EDT [facility] Potassium, Plasma 4.4 3.6 - 4.9 mmol/L 08/01/2024 6:15 AM EDT [facility] Chloride, Plasma 106 97 - 107 mmol/L 08/01/2024 6:15 AM EDT [facility] CO2, Plasma 25 22 - 29 mmol/L 08/01/2024 6:15 AM EDT [facility] Anion Gap 9 6 - 16 mmol/L 08/01/2024 6:15 AM EDT [facility] Total Calcium, Plasma 9.1 8.9 - 10.2 mg/dL 08/01/2024 6:15 AM EDT [facility] Total Protein 6.5 6.3 - 7.9 g/dL 08/01/2024 6:15 AM EDT [facility] Albumin, Plasma 3.8 3.5 - 5.2 g/dL 08/01/2024 6:15 AM EDT [facility] AST, Plasma 26 10 - 50 U/L 08/01/2024 6:15 AM EDT [facility] Comment:Hemolyzed, result ma y be falsely increased. ALT, Plasma 26 10 - 50 U/L 08/01/2024 6:15 AM EDT [facility] Alkaline Phosphatase, Plasma 85 40 - 115 U/L 08/01/2024 6:15 AM EDT [facility] Total Bilirubin, Plasma 0.5 0.2 - 1.1 mg/dL 08/01/2024 6:15 AM EDT [facility] eGFRcr 97.1 mL/min/1.7 3m*2 08/01/2024 6:15 AM EDT [facility] Comment:Reported eGFRcr in m L/min/1.73m2 is based the CKD-EPI 2020 equation that does not use a race coefficient. Blood Venous blood specimen / Unknown Venipuncture / Unknown 08/01/2024 5:32 AM EDT 08/01/2024 5:45 AM EDT us Benjamin Givens MD LAB BLOOD ORDERABLES Final Resu lt Performing Organization Address City/[facility] Co de Phone Number [facility] [address] [place] [address] * EKG now - STAT (adult) (08/01/2024 5:14 AM EDT) Only the most recent of2 resultswithin the time period is included. EKG DIAGNOSIS CLASS Abnormal MUSE ECG Ventricular Rate 82 BPM MUSE ECG QRSD Interval 134 ms MUSE ECG QT Interval 414 ms MUSE ECG QTC Interval 483 ms MUSE ECG R [place] 124 degrees MUSE ECG T Wave [place] 10 degrees MUSE ECG Diagnosis Atrial fibrillation MUSE ECG Diagnosis Right bundle branch block MUSE ECG Diagnosis Abnormal ECG MUSE ECG Diagnosis MUSE ECG Diagnosis Confirmed by Yves Carroll ([id number]) on 08/01/2024 11:11:34 AM MUSE ECG 08/01/2024 5:14 AM EDT 08/01/2024 11:11 AM EDT us Benjamin Givens MD ECG ORDERABLES Final Result Performing Organization Address City/[facility] Co de Phone Number MUSE ECG from Last 3 Months Insurance MEDICARE [facility] Care Teams Chief Pharmacist Relationship Specialty Start Date End Date Bethany Underwood MD [address] [place] [address] [address] [place] [phone] PCP - General 08/07/20
--- OUTSIDE RECORDS SUMMARY | 2024-09-20 08:32 | XMS_ITS | Encounter Summary ---
Author Organization [facility] Address [address] [place] [address] Care Team Providers Care Merry Go Round Attendant Name Role Phone Bethany Underwood MD Primary Care Provider [phone] Encounter Details Date Type Department Care Team [...] drink first t liliam in the morning (EYE-ACCOUNT MANAGER SALES REPRESENTATIVE) to steady your nerves or to [...] Description 12/23/2024 9:40 AM EDT Office Visit [facility] [place] [facility] [address] [place] [address] Franchesca Hsieh MD [address] [place] [address] documented as of this encounter Visit Diagnoses [...] documented as of this encounter Care Teams Merry Go Round Attendant Relationship Specialty Start Date End Date Bethany Underwood MD [address] [place] [address] [address] [place] [address] PCP - General 08/07/20 documented as of this encounter
--- OUTSIDE RECORDS SUMMARY | 2024-09-20 08:32 | XMS_ITS | Encounter Summary ---
Author Organization [facility] Address [address] [place] [address] Care Team Providers Care Diploma Medical Assistant Name Role Phone Bethany Underwood MD Primary Care Provider [phone] Encounter Details Date Type Department Care Team [...] drink first t liliam in the morning (EYE-TELEVISION REPAIRMAN) to steady your nerves or to get [...] Description 12/23/2024 9:40 AM EDT Office Visit [facility] [place] [facility] [address] [place] [address] Franchesca Hsieh MD [address] [place] [address] documented as of this encounter Visit Diagnoses [...] documented as of this encounter Care Teams Diploma Medical Assistant Relationship Specialty Start Date End Date Bethany Underwood MD [address] [place] [address] [address] [place] [address] PCP - General 08/07/20 documented as of this encounter
--- OUTSIDE RECORDS SUMMARY | 2024-09-20 08:33 | XMS_ITS | Encounter Summary ---
Author Organization [facility] Address [address] [place] [address] Care Team Providers Care Ticker Maintainer Name Role Phone Bethany Underwood MD Primary Care Provider [phone] Reason for Visit * Reason Comments Med Refill Encounter Details Date Type Department Care Team (Late st Contact Info) Description 10/04/2023 Refill [facility] [place] [address] [place] [address] Jose Ryan MD [address] [place] [address] Paroxysmal tachycardia (CMS/HCC); Atrial fibrillation, unspecified type [...] Description 12/23/2024 9:40 AM EDT Office Visit [facility] [place] [address] [facility] [place] [address] Franchesca Hsieh MD [address] [place] [phone] documented as of this encounter Visit Diagnoses [...] documented as of this encounter Care Teams Ticker Maintainer Relationship Specialty Start Date End Date Bethany Underwood MD [address] [place] [address] [address] [place] [address] PCP - General 08/07/20 documented as of this encounter
[2024-09-20] MEDS: BARIUM SULFATE(LIQUID E-Z-PAQUE);355ML BOTTLE 355 ML PO (08:55)
[2024-09-20] MEDS: E-Z-GASII EFFERVESCENT GRANULES;1PK 1 EACH PO (08:56)
[2024-09-20] MEDS: BARIUM SULFATE (E-Z-HD 340GM);135ML BOTTLE 135 ML PO (08:56)
== END 2024-09-20 23:59 | disposition home or self-care (01) ==
LOC: RAD 08:27
PROVIDERS: PCP Family Medicine; Visit Provider Family Medicine
DX: K44.9 Diaphragmatic hernia without obstruction or gangrene (principal); K21.9 Gastro-esophageal reflux disease without esophagitis; K57.10 Diverticulosis of small intestine without perforation or abscess without bleeding
CPT/HCPCS: 74246